=== PATIENT | male | born 1950 ===

== ENCOUNTER 2017-08-02 10:57 | Inpatient (IN) | payer MEDICARE, SELFPAY ==
[2017-08-02] MEDS ORDERED: Succinylcholine Chloride 20 MG/ML 10 ml SYRINGE FS ONE (10:59)
[2017-08-02] MEDS ORDERED: Diltiazem 125 MG/25 ML ONE (11:11)
[2017-08-02 11:17] LABS: Base Excess-Venous -9.8 mmol/L (0 (+/- 2.5)); CO2 Tension (PvCO2) 30.3 mmHg (41.0-51.0); Calcium, Ionized 1.06 mmol/L (1.12-1.32); Hemoglobin - Calc 17.1 g/dL (12.0-18.0); Lactate 4.36 mmol/L (0.50-2.20); Potassium 4.1 mmol/L (3.4-4.7); pH (Venous) 7.303 (7.35-7.45); vO2 Saturation-calc 23.3 % (94-98)
[2017-08-02 11:26] LABS: Hemoglobin 15.8 g/dL (14.0-18.0); Mean Corpuscular Hemoglobin 32.3 pg (27.0-31.0); Mean Corpuscular Volume 94.9 fl (80.0-94.0); Mean Platelet Volume 7.6 fL (7.4-10.4); Platelet Count 207 thou/uL (130-400); RBC Distribution Width 13.2 % (11.5-14.5)
[2017-08-02 11:28] LABS: CO2 Tension 32.1 mmHg (35.0-45.0); pH, Arterial 7.28 (7.35-7.45)
[2017-08-02] MEDS ORDERED: Acetaminophen 650 MG Suppository ONE (11:28)
[2017-08-02] MEDS ORDERED: Acetaminophen 325 MG Suppository ONE (11:28)
[2017-08-02 11:29] LABS: Actual Bicarbonate (HCO3a) 14.6 mEq/L (22-26); Base Excess (BEa) -10.9 mEq/L (0 (+/-) 2.5); Calcium, Ionized 1.2 mmol/L (1.12-1.30); O2 Tension (PaO2) 89.4 mmHg (80.0-100.0)
[2017-08-02 11:30] LABS: ALV-art Gradient 369.575 (0-20); Analyzer IN Cardio ER; Puncture Site RBA
[2017-08-02 11:33] LABS: Bilirubin Large (Negative); Blood, Urine Trace (Negative); Clarity TURBID (Clear); Glucose, Urine (Dipstick) Negative (Negative); Leukocyte Small (Negative); Nitrite Positive (Negative); Protein, Urine (Dipstick) 30 mg/dL (Neg-Trace); Specific Gravity, Urine 1.026 (1.002-1.036)
[2017-08-02] MEDS ORDERED: Midazolam HCl 5 mg/ml Vial ONE (11:34)
[2017-08-02 11:45] LABS: Bacteria/HPF 2+ HPF (None Seen); Hyaline Casts/LPF 0-3 HYALINE CAST LPF (0-3 Hyaline); Manual Microscopic Reviewed? No Path Casts Seen; RBC/HPF 0-3 HPF (0-3)
[2017-08-02 11:49] LABS: Band 29 % (5-11); Lymphocytes 7 % (21-51); MDiff Complete? YES; Monocytes 1 % (0-10); Neutrophil 62 % (42-75); PLT Morphology Comment Appears Adequate; RBC Morphology Normal; Reactive Lymphocytes 1 % (0-10)
[2017-08-02 11:50] LABS: ALT (SGPT) 31 U/L (8-55); AST (SGOT) 64 U/L (5-34); Alkaline Phosphatase 58 U/L (40-150); Anion Gap 19 mmol/L (10-20); BUN (Urea Nitrogen) 23 mg/dL (8.4-25.7); Calc. Creatinine Clearance 0 mL/min (70-130); Calcium 9.7 mg/dL (7.8-10.44); Carbon Dioxide 14 mmol/L (23-31); Chloride 99 mmol/L (98-107); Estimated GFR-MDRD 48; Globulin 4.2 g/dL (2.4-3.5); Glucose 118 mg/dL (83-110); Lipase 4 U/L (8-78); Protein, Total 8.2 g/dL (5.8-8.1); Sodium 128 mmol/L (136-145)
[2017-08-02] MEDS ORDERED: cefTRIAXone\\ROCEPHIN 2 GM VIAL ONE (11:50)
[2017-08-02] MEDS ORDERED: Azithromycin 500 MG VIAL ONE (11:50)
[2017-08-02 12:14] LABS: O2 Tension (PaO2) 102.7 mmHg (80.0-100.0); pH, Arterial 7.33 (7.35-7.45)
[2017-08-02 12:15] LABS: Actual Bicarbonate (HCO3a) 14.3 mEq/L (22-26); Analyzer IN Cardio ER; Base Excess (BEa) -10.1 mEq/L (0 (+/-) 2.5); Calcium, Ionized 1.1 mmol/L (1.12-1.30); Hemoglobin (Hb) 13.3 g/dL (14.0-18.0)
[2017-08-02 12:16] LABS: Puncture Site RBA
[2017-08-02] MEDS ORDERED: Bisacodyl 10 MG SUPP PR PRN (12:37)
[2017-08-02] MEDS ORDERED: Milk Of Magnesia 30 ML UDCUP PER TUBE PRN (12:37)
[2017-08-02] MEDS ORDERED: Norepinephrine 8 MG/0.9% NS 250 ML IVPB PRN (12:37)
[2017-08-02] MEDS ORDERED: CCU Electrolyte Replacement 1 EACH IVPB ONE (12:37)
[2017-08-02] MEDS ORDERED: VANCOMYCIN IVPB PRN (12:37)
[2017-08-02] MEDS ORDERED: Mag-Al 1200 mg/1200 mg/30 ML UDCUP PER TUBE PRN (12:37)
[2017-08-02] MEDS ORDERED: Ondansetron HCl/PF 4 MG/2 ML Vial IVP PRN (12:37)
[2017-08-02] MEDS ORDERED: Potassium Phosphate 12 MMOL in Sodium Chloride 0.9% 250 ML 250 ML IV PRN (12:53)
[2017-08-02] MEDS ORDERED: Potassium Chloride 40 MEQ in Premix Bag 1 BAG IVPB PRN (12:53)
[2017-08-02] MEDS ORDERED: Magnesium Oxide 400 MG TAB PO PRN ×2 (12:53)
[2017-08-02] MEDS ORDERED: Potassium Chloride 20 MEQ TAB PO PRN (12:53)
[2017-08-02] MEDS ORDERED: Magnesium 2 GM/NS 0.9% 100 ML 2 GM in Premix Bag 1 BAG IVPB PRN (12:53)
[2017-08-02] MEDS ORDERED: Potassium Phosphate 9 MMOL in Sodium Chloride 0.9% 100 ML IVPB PRN (12:53)
[2017-08-02] MEDS ORDERED: Potassium Phosphate 15 MMOL in Sodium Chloride 0.9% 250 ML 250 ML IV PRN (12:53)
[2017-08-02] MEDS ORDERED: CCU ELECTROLYTE REPLACEMENT PROTOCOL FS PRN (12:53)
--- NOTE | 2017-08-02 13:14 | RAD ---
CHEST 1 VIEW: HISTORY: SVT. COMPARISON: None. FINDINGS: Endotracheal tube just beyond the level of the clavicles. Nasogastric tube extends beyond the diaphr agm. Atherosclerosis of the aorta. Lungs are hyperinflated. Right lower lobe infiltrate is suspect ed. Old right rib fractures. No pneumothorax. IMPRESSION: Right lower lobe infiltrate. POS: [facility]
[2017-08-02] MEDS: Multivitamins, Adult 10 ML, Folic Acid 1 MG, Thiamine HCl 100 MG in Dextrose 5 %-0.45 %... IV SCH (13:30)
[2017-08-02] MEDS ORDERED: Lorazepam 2 MG/ML VIAL ONE (13:33)
--- NOTE | 2017-08-02 13:36 | HP ---
PRIMARY CARE PHYSICIAN: Dr. Yandel Baker. REASON FOR ADMISSION: Acute respiratory failure, sepsis secondary to pneumonia, SVT. HISTORY OF PRESENT ILLNESS: The patient is stated as 89 years of age, but that is wrong. Most like ly, this patient's age in the 70s-80s. The patient was intubated when I saw this patient. Family member arrived little bit later, after arrival and after intubation and they provided some his tory. The patient's brother and his sister as well as nephew is present. They are providing history. They report that the patient lives by himself. He has poor living situation though he lives in his house and he has surrounding cats. He drinks alcohol heavily and he smokes heavily. He does not like to go to doctors. One time when he went to see Dr. 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 Si nce then, he never saw any primary care physician and he was only taking aspirin and he was not takin g any other medication. The patient does not follow instructions given by other family members. He is not and he does not have any kids. Last night, the patient had episode of fall and the patient's sister son-in-law went to his house and helped him to sit on the couch. At that time, they noticed that the patient was not able to stand b y himself and he was not able to walk to the couch from floor. They report that he may be sick for t he last couple of days. Today, he was complaining of shortness of breath and that is why paramedics was called. When paramedics saw him, at that time, he was found with SVT. He reported to paramedics that he is only taking aspirin, and he does not have any other medical history. The patient had SVT and paramedics cardioverted with 200 joules. IV access was established. When he came to emergency room, he was rapidly decompensated and he required intubation. Initially, the patient was hypertensive, but after intubation, the patient's blood pressure was 102/7 6. Initially, he was in SVT, but after that he was in sinus tachycardia after cardioversion. He was having temperature 104.4 and that is why cooling blanket was applied. Routine blood tests showed hy ponatremia, leukocytosis with bandemia, lactic acidosis, hyponatremia, acute kidney failure, elevated BNP and urinalysis was also suggestive of UTI. Unfortunately, the patient is intubated and he cannot provide any more history and family member only have information this much and they did not add any more information to him. The patient ambulates with a cane. REVIEW OF SYSTEMS: All review of systems tried to review with the patient, but unfortunately unable to review because patient is intubated and sedated. 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 He has tobacco abuse disorder as well as alcohol abuse disorder. PAST PSYCHIATRIC HISTORY: Noncompliance with treatment. He does not like to go to doctors. He does not able to take care of himself and he smokes and he abuses alcohol heavily. PAST SURGICAL HISTORY: Unable to review at this point because the patient is intubated, sedated and family member does not have any clue about his previous surgical history. ALLERGIES: No known drug allergy. CURRENT HOME MEDICATIONS: The patient is only taking aspirin 81 mg daily. FAMILY HISTORY: Positive for congestive heart failure. No family history of cancer or stroke. EMERGENCY ROOM COURSE: The patient has received Rocephin, azithromycin, midazolam 5 mg, Tylenol 975 mg rectally, IV fluid, succinylcholine, Cardizem 10 mg IV push, etomidate 40 mg x2. SOCIAL HISTORY: The patient is single. He never . He lives by himself in his house. He smo kes heavily. He drinks alcohol heavily. He does not have any other illicit drug abuse history. He ambulates with a cane. PHYSICAL EXAMINATION: VITAL SIGNS: Currently, the patient is intubated and sedated. Blood pressure 102/76; pulse 118 and tachycardia; respiratory rate 14, on ventilator; temperature 104.4; saturation 99% on ventilator; yandy ght 67.7 kilograms. GENERAL: Patient is intubated, sedated, younger than his stated age. HEAD: Normocephalic, atraumatic. EYES: Pupils round, reactive to light. Extraocular muscle intact. No nystagmus. ENT: Endotracheal tube in place. Dry appearing mucous membranes. No oral lesion. NECK: Supple, no JVD, no thyromegaly, no carotid bruit. LUNGS: Few end expiratory wheezing heard. Rales present at the right lower lobe. CARDIAC: S1, S2 regular, tachycardia. No murmur elicited, no gallop, no rub. ABDOMEN: Soft, bowel sounds present, nontender, nondistended. No organomegaly, no mass, no suprapub ic discomfort though unable to determine because intubated and sedated. BACK: Unremarkable. EXTREMITIES: Upper extremity: Passive movement of all joints are normal. Lower extremity: Patient does have bruise from fall on the right knee. NEUROLOGIC: Unable to assess at this point because the patient is intubated and sedated. SKIN: No skin rash other than bruise from fall on the right knee. PSYCHIATRIC: Unable to assess at this point. SIGNIFICANT LABORATORY DATA: Previous EKG was showing SVT. Currently, EKG showing sinus tachycardia , nonspecific ST-T changes. Chest x-ray showing right lower lobe infiltration, COPD type of changes. CBC: WBC 18.0, hemoglobin 15.8, platelet 207 with bandemia. ABG: pH 7.33, CO2 28.0, O2 102.7, sa turation 98%, bicarbonate 14.3 on ventilator. BMP: Sodium 128, potassium 4.0, chloride 99, carbon d ioxide 14, anion gap 19, BUN 23, creatinine 1.36, glucose 118, calcium 9.7. Bilirubin 2.0, AST 64, A LT 31, alkaline phosphatase 58, albumin 4.0, lipase 4. TSH 1.81. BNP 940.7. Urinalysis suggestive of urinary tract infection. ASSESSMENT AND PLAN: 1. Acute respiratory failure with hypoxia. The patient does have right lower lobe infiltration. He is a heavy smoker. He might have underlying chronic obstructive pulmonary disease exacerbation as w ell. He has currently sepsis. He also has elevated BNP. He was also having SVT initially. At this point, the patient is intubated in the emergency room. Dr. May is already notified. [facility] ent will defer to him. 2. Community-acquired right lower lobe pneumonia, rule out aspiration pneumonia. At this point, the patient will be given broad-spectrum antibiotic therapy with vancomycin and Zosyn. DuoNeb therapy w ill be given. 3. Severe sepsis, required intubation for hypoxic respiratory failure with acute organ dysfunction. The patient has respiratory failure, elevated BNP and lactic acidosis. The patient is kept on broad -spectrum antibiotic therapy and will continue with IV fluid and will follow up on culture result. 5. Urinary tract infection. The patient is already on vancomycin and Zosyn. We will follow up on u rine culture result. 6. Lactic acidosis due to sepsis. We will repeat lactic acid level tomorrow. 7. Elevated BNP, most likely related with acute supraventricular tachycardia, but underlying congest boo heart failure secondary to alcoholic cardiomyopathy cannot be entirely excluded. We will obtain echocardiography to assess ejection fraction and other structural abnormality. 8. Acute supraventricular tachycardia converted after cardioversion. We will consult Cardiology. W e will do serial cardiac enzymes x3. We will obtain echocardiography. TSH is normal. Probably, the patient's supraventricular tachycardia episode may be triggered by underlying high grade fever and s epsis. Further investigation will defer to Cardiology. 9. Hyponatremia, possibly from beer potomania or underlying dehydration. At this point, the patient will be given IV fluid and will repeat BMP tomorrow. 10. Alcoholism. We will continue with banana bag. We will watch for any alcohol withdrawal symptom s. 11. Tobacco abuse disorder. When the patient will be extubated, at that time we will provide counse ling to avoid smoking as well as avoid alcohol abuse and will offer nicotine patch if needed. 12. Respiratory alkalosis. The patient has compensation secondary to tachypnea. 13. Protein-calorie malnutrition. The patient will be given nutritional support. 14. Deep venous thrombosis prophylaxis. Lovenox 30 mg subcutaneously daily. 15. Gastrointestinal prophylaxis, Protonix 40 mg IV daily. 16. Code status: The patient is FULL CODE. The patient does not have any surrogate decision maker. Disposition plan based on clinical course. We are expecting patient's stay in hospital more than 2 m idnights. We will also use Levophed drip if needed in case if blood pressure drops. Total time spent providing critical care to this patient was 35 minutes in the Emergency Room. Condition updated to family members at bedside in the emergency room.
--- NOTE | 2017-08-02 13:57 | CON ---
DATE OF CONSULTATION: 08/02/2017 Mr. Reddy is reportedly 67 years old. He is unable to give a history since he is intubated. Reviewing the admitting history is obtained by the Hospitalist , apparently he drinks heavily, smokes heavily, and does not care for himself. His appearance would support that. He does not receive any routine health care. Apparently he has been falling. He has multiple abrasions and lacerations and scabs on all 4 extremities. Apparently last night he was unable to stand. He was complaining of shortness of breath. Paramedics were called. He received adenosine and cardioversion for what they felt was SVT. Subsequently he was admitted to the ICU after being intubated by the emergency physician. Chest radiograph shows a faint right lower lobe infiltrate, proper placement of the endotracheal tube. I have reviewed this film. PAST MEDICAL HISTORY: Otherwise unknown. FAMILY HISTORY: Could not obtain. SOCIAL HISTORY: As mentioned, he reportedly smokes and drinks a significant amount. PHYSICAL EXAMINATION: GENERAL: Patient is intubated and cannot complete a good history VITAL SIGNS: He is febrile to 104 in the ER, he is 101.7 in the ICU, heart rate 113, he is in sinus rhythm, respiratory rates in the 30s. Blood pressure 109/68. LUNGS: Remarkable for rhonchi bilaterally. HEART: Regular rhythm. S1 and S2 are distant. ABDOMEN: Soft and nontender. EXTREMITIES: No clubbing, cyanosis, or edema. He does spontaneously move all of his extremities. IMPRESSION: 1. Right lower lobe pneumonia. 2. Severe intravascular volume depletion. 3. Possible coexistent sepsis, but I suspect because of his alcohol usage, he is just more likely severely dehydrated, will be aggressively volume resuscitated, receive antibiotics, mechanical ventilation as well as benzodiazepines for sedation. This is a 50 minute consult with greater that 50% of the time spent on the unit with coordination of care. OPAL
[2017-08-02] MEDS ORDERED: Vancomycin HCl 1 GM in Premix Bag 1 BAG IVPB SCH (14:00)
[2017-08-02] MEDS ORDERED: Sodium Chloride 0.9% 1,000 ML IV SCH ×2 (14:45→17:45)
[2017-08-02] MEDS: Acetaminophen 650 MG/20.3 ML UDCUP PER TUBE PRN (15:39)
[2017-08-02] MEDS: Sodium Chloride 0.9% 1,000 ML IV SCH ×2 (15:39→19:50)
[2017-08-02 15:54] LABS: Lactic Acid 2.7 mmol/L (0.5-2.2)
[2017-08-02] MEDS ORDERED: Midazolam HCl 2 mg/2 ml Vial ONE (15:57)
[2017-08-02 16:08] LABS: CKMB 12.4 ng/mL (0-6.6); Troponin I 0.986 ng/mL (< 0.028)
[2017-08-02] MEDS ORDERED: Digoxin 0.5 MG/2 ML AMP ONE (16:32)
[2017-08-02] MEDS ORDERED: Digoxin 0.5 MG/2 ML AMP SLOW IVP SCH (16:45)
[2017-08-02] MEDS ORDERED: Vasopressin 40 UNIT, Admixture Fee 1 EACH in Sodium Chloride 0.9% 100 ML IV SCH (18:30)
[2017-08-02] MEDS ORDERED: Albumin 25% 25 GM/100 ML BOT IVPB SCH (18:30)
[2017-08-02 18:59] LABS: CKMB 11.6 ng/mL (0-6.6); Critical Call CKMBM RESULT DECREASING; Critical Call Chem Troponin I RESULT DECREASING; Troponin I 0.665 ng/mL (< 0.028)
[2017-08-02] MEDS: Piperacillin/Tazobactam 3.375 GM in Sodium Chloride 0.9% 100 ML IVPB SCH (19:30)
--- NOTE | 2017-08-02 23:11 | CON ---
DATE OF CONSULTATION: 08/02/2017 REASON FOR CONSULTATION: Tachycardia, respiratory failure. HISTORY OF PRESENT ILLNESS: Mr. Khoa Reddy is an elderly gentleman, intubated on the ventilator wi th respiratory failure and tachycardia. The patient is unable to give history as he is intubated. According to the notes in the chart, the p atient has heavy alcohol intake as well as heavy tobacco use, has frequent falling. He was found to have multiple abrasions and lacerations in all 4 extremities. He is complaining of shortness of floyd th. Someone called the paramedics. He received adenosine and cardioversion, but had recurrent tachy cardia. The patient has been intubated on the ventilator. PAST MEDICAL HISTORY: Otherwise unknown. SOCIAL HISTORY: Positive for smoking and drinking. PHYSICAL EXAMINATION: GENERAL: It is chronically ill-appearing elderly gentleman, not responding now. VITAL SIGNS: Blood pressure was 90/60; pulse 120-140, looks like an atrial tachycardia. SKIN: There is a grayish discoloration, looks chronically ill, intubated and ventilated. NECK: Neck veins are slightly distended. LUNGS: Distant, but I do not hear wheezing or rales. CARDIOVASCULAR: Tachycardic, irregularly irregular. ABDOMEN: Soft, nontender. EXTREMITIES: Cool, but not cold. Multiple abrasions throughout all the extremities. LABORATORY AND X-RAY FINDINGS: Hemoglobin 15.8. Troponin level 0.986. Lactic acid 2.7. BNP 940.7. The patient is currently on pressors. EKG reveals what appears to be an atrial tachycardia. ASSESSMENT: 1. Atrial tachycardia. 2. Likely chronic obstructive pulmonary disease. 3. Right lower lobe infiltrate. PLAN: 1. He is on antibiotics. 2. Agree with digoxin. 3. Probably cannot use Cardizem at this point due to the hypotension. 4. I will be glad to follow with you. Prognosis appears guarded to poor.
[2017-08-02] MEDS: Albumin 25% 25 GM/100 ML BOT IVPB SCH (23:56)
[2017-08-03] MEDS: Sodium Chloride 0.9% 1,000 ML IV SCH ×5 (00:03→21:15)
[2017-08-03 04:59] LABS: Lactic Acid 2.9 mmol/L (0.5-2.2)
[2017-08-03] MEDS: Albumin 25% 25 GM/100 ML BOT IVPB SCH ×3 (05:10→18:06)
[2017-08-03 05:40] LABS: Albumin 2.8 g/dL (3.4-4.8)
[2017-08-03 05:41] LABS: Chloride 111 mmol/L (98-107); Potassium 3.5 mmol/L (3.5-5.1); Sodium 132 mmol/L (136-145)
[2017-08-03 05:42] LABS: Glucose 187 mg/dL (83-110)
[2017-08-03 05:44] LABS: Anion Gap 11 mmol/L (10-20); Bilirubin, Total 1.9 mg/dL (0.2-1.2); Carbon Dioxide 14 mmol/L (23-31)
[2017-08-03 05:45] LABS: Alkaline Phosphatase 21 U/L (40-150)
[2017-08-03 05:46] LABS: Calc. Creatinine Clearance 57 mL/min (70-130); Calcium 7.1 mg/dL (7.8-10.44); Estimated GFR-MDRD Greater than 90; Protein, Total 4.8 g/dL (5.8-8.1)
[2017-08-03 05:47] LABS: BUN (Urea Nitrogen) 13 mg/dL (8.4-25.7)
[2017-08-03 05:48] LABS: ALT (SGPT) 17 U/L (8-55); AST (SGOT) 46 U/L (5-34)
[2017-08-03] MEDS: Piperacillin/Tazobactam 3.375 GM in Sodium Chloride 0.9% 100 ML IVPB SCH ×4 (06:02→18:40)
[2017-08-03 06:38] LABS: Anisocytosis SLIGHT = 6-15 cells (100X) (0-5/hpf); Band 59 % (5-11); Crenated RBC SLIGHT = 1-5 cells (100X) (None Seen); Elliptocytes SLIGHT = 2-5 cells (100X) (0-1/hpf); Hemoglobin 9.6 g/dL (14.0-18.0); Lymphocytes 8 % (21-51); MDiff Complete? YES; Mean Corpuscular HGB CONC 34.3 g/dL (32.0-36.0); Mean Corpuscular Hemoglobin 32.3 pg (27.0-31.0); Mean Corpuscular Volume 94.4 fl (80.0-94.0); Metamyelocyte 1 % (0-0); Monocytes 1 % (0-10); Neutrophil 31 % (42-75); PLT Morphology Comment Appears Decreased; Platelet Count 94 thou/uL (130-400); RBC Distribution Width 13.3 % (11.5-14.5); Red Blood Cell (RBC) Count 2.96 mill/uL (4.70-6.10); White Blood Cell (WBC) Count 3.9 thou/uL (4.8-10.8)
[2017-08-03] MEDS: Potassium Chloride 40 MEQ in Sodium Chloride 0.9% 250 ML 250 ML IVPB PRN (06:52)
--- NOTE | 2017-08-03 07:42 | RAD ---
SEMIUPRIGHT PORTABLE CHEST 1 VIEW: Date: 08/03/17 HISTORY: [id number] male with respiratory insufficiency. COMPARISON: 08/02/17. FINDINGS: NG tube and endotracheal tubes in position. Monitor leads overlie the chest. Worsening bilateral vasc ular congestion, and interstitial and alveolar opacities throughout both lungs, including the perihil ar regions and lower lung zones, somewhat more marked in the right base. IMPRESSION: Considerably worsening abnormal alveolar and interstitial opacities, somewhat greater in the right ch est. Continue short-term follow-up. POS: OFF
[2017-08-03 08:08] LABS: pH, Arterial 7.35 (7.35-7.45)
[2017-08-03 08:09] LABS: Actual Bicarbonate (HCO3a) 12.7 mEq/L (22-26); Base Excess (BEa) -11.4 mEq/L (0 (+/-) 2.5); CO2 Tension 23.3 mmHg (35.0-45.0); Calcium, Ionized 1.1 mmol/L (1.12-1.30); Hematocrit-ABG 27.9 % (42.0-52.0); Hemoglobin (Hb) 9.1 g/dL (14.0-18.0); O2 Tension (PaO2) 82.1 mmHg (80.0-100.0); Puncture Site L.R.
[2017-08-03 08:10] LABS: ALV-art Gradient 173.975 (0-20)
[2017-08-03] MEDS ORDERED: Vecuronium 10 MG VIAL IV PRN (08:27)
[2017-08-03] MEDS: Enoxaparin Sodium 30 MG/0.3 ML SYRINGE SC SCH (09:46)
--- NOTE | 2017-08-03 10:00 | PDOC.PN ---
- Subjective Encounter Start Date: 08/03/17 Encounter Start Time: 09:30 -: old records requested/rev Patient seen and examined for pneumonia, currently intubated, on vasopressin, No overnight events - Objective MAR Reviewed: Yes Vital Signs & Weight: Vital Signs (12 hours) Pulse Resp BP Pulse Ox 08/03/17 07:45 94 25 H 100 08/03/17 07:42 94 113/70 08/03/17 06:00 27 H 08/03/17 04:00 28 H 08/03/17 02:00 32 H 08/03/17 00:00 32 H 08/02/17 23:27 96 28 H 100 08/02/17 22:00 30 H Weight Weight 163 lb 12.855 oz Most Recent Monitor Data Heart Rate from ECG 108 NIBP 130/74 NIBP BP-Mean 99 Respiration from ECG 27 SpO2 99 I&O: 08/02/17 08/03/17 08/04/17 06:59 06:59 06:59 Intake Total 7995.3 Output Total 1994 Balance 6000.3 Result Diagrams: 08/03/17 05:05 08/03/17 05:05 Radiology Reviewed by me: Yes (chest xray) EKG Reviewed by me: Yes (nsr) Phys Exam - Physical Examination Constitutional: NAD intubated HEENT: PERRLA, sclera anicteric Neck: no JVD, supple Respiratory: no wheezing, no rales, no rhonchi Cardiovascular: RRR, no significant murmur, no rub Gastrointestinal: soft, no distention, positive bowel sounds Musculoskeletal: no edema, pulses present unable to assess due to intubated Lymphatic: no nodes Deviation from normal: unable to assess Skin: normal turgor Dx/Plan (1) Acute respiratory failure with hypoxia Code(s): J96.01 - ACUTE RESPIRATORY FAILURE WITH HYPOXIA Status: Acute (2) Community acquired bacterial pneumonia Code(s): J15.9 - UNSPECIFIED BACTERIAL PNEUMONIA Status: Acute (3) Demand ischemia of myocardium Code(s): I24.8 - OTHER FORMS OF ACUTE ISCHEMIC HEART DISEASE Status: Acute (4) Elevated brain natriuretic peptide (BNP) level Code(s): R79.89 - OTHER SPECIFIED ABNORMAL FINDINGS OF BLOOD CHEMISTRY Status : Acute (5) Lactic acidosis Code(s): E87.2 - ACIDOSIS Status: Acute (6) Pancytopenia Code(s): D61.818 - OTHER PANCYTOPENIA Status: Acute (7) SVT (supraventricular tachycardia) Code(s): I47.1 - SUPRAVENTRICULAR TACHYCARDIA Status: Acute (8) Sepsis with acute organ dysfunction Code(s): A41.9 - SEPSIS, UNSPECIFIED ORGANISM; R65.20 - SEVERE SEPSIS WITHOUT SEPTIC SHOCK Status: Acute (9) Septic shock Code(s): A41.9 - SEPSIS, UNSPECIFIED ORGANISM; R65.21 - SEVERE SEPSIS WITH SEPTIC SHOCK Status: Acute (10) UTI (urinary tract infection) Status: Acute (11) Alcohol abuse Code(s): F10.10 - ALCOHOL ABUSE, UNCOMPLICATED Status: Chronic (12) Protein-calorie malnutrition, moderate Code(s): E44.0 - MODERATE PROTEIN-CALORIE MALNUTRITION Status: Chronic (13) Tobacco abuse Code(s): Z72.0 - TOBACCO USE Status: Chronic - Plan cont current plan of care, continue antibiotics, respiratory therapy * continue vancomycin and zosyn * echo done and result pending * cardiology following * pulmonary managing vent * monitor labs * follow culture * medication reviewed as below * symptomatic treatment. * continue vasopressure support Review of Systems - Review of Systems Other: unable to review due to intubated status - Medications/Allergies Allergies/Adverse Reactions: Allergies Allergy/AdvReac Type Severity Reaction Status Date / Time No Known Allergies Allergy Unverified 08/02/17 12:53 Medications: Current Medications Acetaminophen (Tylenol Elixir) 650 mg PER TUBE Q4H PRN PRN Reason: Headache/Fever or MILD Pain Last Admin: 08/02/17 15:39 Dose: 650 mg Al Hydroxide/Mg Hydroxide (Maalox) 30 ml PER TUBE Q6H PRN PRN Reason: Heartburn or Indigestion Albumin Human (Albumin 25%) 25 gm IVPB Q6HR [facility] Stop: 08/04/17 23:59 Last Admin: 08/03/17 05:10 Dose: 25 gm Albuterol/Ipratropium (Duoneb) 3 ml NEB [id number] NAVNE[facility] Last Admin: 08/03/17 07:45 Dose: 3 ml Bisacodyl (Dulcolax) 10 mg WV Q24H PRN PRN Reason: Constipation Enoxaparin Sodium (Lovenox) 30 mg SC 0900 [facility] Last Admin: 08/03/17 09:46 Dose: 30 mg Multivitamins 10 ml/ Folic Acid 1 mg/ Thiamine HCl 100 mg / Dextrose/Sodium Chloride 1,011.2 mls @ 100 mls/hr IV Q24HR [facility] Last Admin: 08/02/17 13:30 Dose: 1,011.2 mls Piperacillin Sod/Tazobactam (Sod 3.375 gm/ Sodium Chloride) 100 mls @ 200 mls/ hr IVPB 0100,0700,1300,1900 [facility] Last Admin: 08/03/17 06:02 Dose: 100 mls Potassium Chloride 40 meq/ (Sodium Chloride) 270 mls @ 135 mls/hr IVPB ASDIR PRN PRN Reason: FOR SERUM K+ 2.5 - 3.5 Last Admin: 08/03/17 06:52 Dose: 270 mls Potassium Chloride 40 meq/ (Device) 100 mls @ 50 mls/hr IVPB ASDIR PRN PRN Reason: FOR SERUM K+ 2.5 - 3.5 Magnesium Sulfate 1 gm/ Sodium (Chloride) 102 mls @ 102 mls/hr IV PRN PRN PRN Reason: MAG LEVEL 1.4 - 2.0 Magnesium Sulfate 2 gm/ Device 100 mls @ 100 mls/hr IVPB ASDIR PRN PRN Reason: MAGNESIUM < 1.4 Potassium Phosphate 9 mmol/ (Sodium Chloride) 103 mls @ 25.75 mls/hr IVPB ASDIR PRN PRN Reason: Phosphate 1.0-1.8 Potassium Phosphate 12 mmol/ (Sodium Chloride) 254 mls @ 63.5 mls/hr IV ASDIR PRN PRN Reason: Serum phosphate 0.5-0.9 Potassium Phosphate 15 mmol/ (Sodium Chloride) 255 mls @ 63.75 mls/hr IV ASDIR PRN PRN Reason: Serum Phos < 0.5 Sodium Chloride (Normal Saline 0.9%) 1,000 mls @ 200 mls/hr IV .Q5H [facility] Last Admin: 08/03/17 09:40 Dose: 1,000 mls Midazolam HCl (Versed) 100 mls @ 0 mls/hr IVPB INF NAVNEET; Titrate PRN Reason: Protocol Last Admin: 08/02/17 16:00 Dose: 100 mls Vasopressin 40 unit/Miscellaneous Medication 1 each/ Sodium Chloride 102 mls @ 6 mls/hr IV INF NAVNEET PRN Reason: Protocol Last Admin: 08/02/17 18:30 Dose: 102 mls Vancomycin HCl 1.25 gm/ Sodium (Chloride) 250 mls @ 166.667 mls/hr IVPB 1000, 2200 [facility] Magnesium Hydroxide (Milk Of Magnesium) 30 ml PER TUBE DAILYPRN PRN PRN Reason: Constipation Magnesium Oxide (Magnesium Oxide) 400 mg PO BIDPRN PRN PRN Reason: FOR SERUM MAG 1.4 - 2.0 Magnesium Oxide (Magnesium Oxide) 800 mg PO PRN PRN PRN Reason: FOR SERUM MAG < 1.4 Methylprednisolone Sodium Succinate (Solu-Medrol) 20 mg IVP Q6HR [facility] Miscellaneous Medication (Pharmacy To Dose) 1 each IVPB DAILYPRN PRN PRN Reason: LABS Miscellaneous Medication (Phos-Nak) 1 pkt PO TIDPRN PRN PRN Reason: FOR PHOS LEVEL 1.0 - 1.8 Miscellaneous Medication (Phos-Nak) 2 pkt PO TIDPRN PRN PRN Reason: FOR PHOS LEVEL 0.5 - 1.0 Ccu Electrolyte (Replacement Protocol) 0 each FS PRN PRN PRN Reason: FOR ELECTROLYTE REPLACEMENT Ondansetron HCl (Zofran) 4 mg IVP Q6H PRN PRN Reason: Nausea/Vomiting Pantoprazole Sodium (Protonix) 40 mg IVP 2100 [facility] Potassium Chloride (K-Dur) 40 meq PO ASDIR PRN PRN Reason: FOR SERUM K+ 2.5 - 3.5 Potassium Chloride (Klor-Con) 40 meq PER TUBE ASDIR PRN PRN Reason: FOR SERUM K+ 2.5-3.5 Vecuronium [place] (Norcuron) 10 mg IV Q2H PRN PRN Reason: Agitation
--- NOTE | 2017-08-03 10:09 | PRG ---
DATE OF SERVICE: 08/03/2017 SUBJECTIVE: Mr. Reddy is back in sinus rhythm. He is still on the ventilator. REVIEW OF SYSTEMS: Not obtainable. PHYSICAL EXAMINATION: VITAL SIGNS: Blood pressure is better 130/70, pulse 108, sinus tachycardia. LUNGS: Distant, no wheezing. CARDIAC: Distant, no murmur, rub or gallop. ABDOMEN: Soft, nontender. EXTREMITIES: Not warm. ASSESSMENT: 1. Respiratory failure. 2. Atrial arrhythmias, improved. 3. Increased troponin, probably demand ischemia. 4. Lactic acidosis, improved. 5. Hyponatremia. 6. Hypokalemia. PLAN: Continue supportive care. No other changes at this time.
[2017-08-03] MEDS: Vancomycin HCl 1.25 GM in Sodium Chloride 0.9% 250 ML 250 ML IVPB SCH ×2 (10:29→21:14)
[2017-08-03] MEDS ORDERED: Diltiazem HCl 125 MG, Admixture Fee 1 EACH in Sodium Chloride 0.9% 100 ML IVPB SCH (12:00)
[2017-08-03] MEDS: Multivitamins, Adult 10 ML, Folic Acid 1 MG, Thiamine HCl 100 MG in Dextrose 5 %-0.45 %... IV SCH ×2 (12:45→19:06)
--- NOTE | 2017-08-03 18:52 | PRG ---
DATE OF SERVICE: 08/03/2017 SUBJECTIVE: Mr. Reddy remains mechanically ventilated. OBJECTIVE: VITAL SIGNS: His heart rate had been up to highest 152 earlier today, but is down to 110 now. Blood pressure 104/65, respiratory rate in the 20s. Oximetry is 95% on ventilation. LUNGS: Remarkable for coarse breath sounds bilaterally. HEART: Regular rhythm. ABDOMEN: Soft. EXTREMITIES: Without asymmetry or edema. Moves all well. NEUROLOGIC: Nonfocal. LABORATORY DATA: White count 3.9 today, hemoglobin 9.6, platelets 94,000. He has 59% bands on his p eripheral smear. One blood culture positive for Staph aureus. Second blood cultures positive for Staph aureus as well . Most likely (gram positives in clusters). IMPRESSION: Staph aureus bacteremia with pneumonia. His radiograph is progressed on reviewing his c hest x-ray. He will remain mechanically ventilated for many days. His antimicrobial therapy should be appropriate at this point. Critical care time was 30 minutes.
[2017-08-03] MEDS: Pantoprazole 40 MG VIAL IVP SCH (21:14)
[2017-08-04] MEDS: Albumin 25% 25 GM/100 ML BOT IVPB SCH ×4 (00:23→18:30)
[2017-08-04] MEDS: Piperacillin/Tazobactam 3.375 GM in Sodium Chloride 0.9% 100 ML IVPB SCH ×4 (00:23→18:30)
[2017-08-04] MEDS: Sodium Chloride 0.9% 1,000 ML IV SCH ×3 (00:24→09:35)
[2017-08-04 04:42] LABS: Band 35 % (5-11); Hemoglobin 8.5 g/dL (14.0-18.0); Lymphocytes 8 % (21-51); MDiff Complete? YES; Mean Corpuscular HGB CONC 35.1 g/dL (32.0-36.0); Mean Corpuscular Hemoglobin 32.9 pg (27.0-31.0); Mean Corpuscular Volume 93.8 fl (80.0-94.0); Mean Platelet Volume 8.1 fL (7.4-10.4); Monocytes 1 % (0-10); Neutrophil 56 % (42-75); PLT Morphology Comment Appears Decreased; Platelet Count 75 thou/uL (130-400); RBC Distribution Width 13.2 % (11.5-14.5); Red Blood Cell (RBC) Count 2.57 mill/uL (4.70-6.10)
[2017-08-04 04:51] LABS: ALT (SGPT) 12 U/L (8-55); AST (SGOT) 24 U/L (5-34); Albumin 3.5 g/dL (3.4-4.8); Alkaline Phosphatase 17 U/L (40-150); Anion Gap 9 mmol/L (10-20); BUN (Urea Nitrogen) 9 mg/dL (8.4-25.7); Bilirubin, Total 1.5 mg/dL (0.2-1.2); Calc. Creatinine Clearance 118 mL/min (70-130); Calcium 8.2 mg/dL (7.8-10.44); Carbon Dioxide 16 mmol/L (23-31); Chloride 112 mmol/L (98-107); Estimated GFR-MDRD Greater than 90; Globulin 1.8 g/dL (2.4-3.5); Glucose 156 mg/dL (80-115); Potassium 2.9 mmol/L (3.5-5.1); Protein, Total 5.3 g/dL (5.8-8.1); Sodium 134 mmol/L (136-145)
[2017-08-04] MEDS: Potassium Chloride 40 MEQ in Sodium Chloride 0.9% 250 ML 250 ML IVPB PRN ×2 (05:45→14:34)
[2017-08-04 07:55] LABS: Actual Bicarbonate (HCO3a) 16.1 mEq/L (22-26); O2 Tension (PaO2) 46.6 mmHg (80.0-100.0); pH, Arterial 7.38 (7.35-7.45)
[2017-08-04 07:56] LABS: Base Excess (BEa) -8.1 mEq/L (0 (+/-) 2.5); Hematocrit-ABG 25.2 % (42.0-52.0); Hemoglobin (Hb) 8.4 g/dL (14.0-18.0)
[2017-08-04 07:58] LABS: Analyzer IN Cardio ER; Calcium, Ionized 1.2 mmol/L (1.12-1.30); Puncture Site L.R.
[2017-08-04] MEDS: Enoxaparin Sodium 30 MG/0.3 ML SYRINGE SC SCH (09:11)
[2017-08-04] MEDS: Vancomycin HCl 1.25 GM in Sodium Chloride 0.9% 250 ML 250 ML IVPB SCH ×2 (09:12→21:48)
[2017-08-04] MEDS: Diltiazem HCl 125 MG, Admixture Fee 1 EACH in Sodium Chloride 0.9% 100 ML IVPB SCH (09:12)
--- NOTE | 2017-08-04 10:17 | RAD ---
CHEST ONE VIEW: HISTORY: Ventilated patient. COMPARISON: Radiograph from the prior day. FINDINGS: The endotracheal tube tip is in good position. The enteric tube tip is below the diaphragm, out of t he field of view. Mild interval worsening of extensive interstitial and alveolar opacities throughou t both lungs. Thickening of the right minor fissure. IMPRESSION: Worsening interstitial and alveolar infiltrates, as well as effusions, concerning for either worsenin g edema versus acute respiratory distress syndrome/viral infectious process. POS: [facility]
--- NOTE | 2017-08-04 11:15 | PDOC.PN ---
- Subjective Encounter Start Date: 08/04/17 Encounter Start Time: 09:40 Patient seen and examined. No overnight events pt is currently intubated - Objective MAR Reviewed: Yes Vital Signs & Weight: Vital Signs (12 hours) Temp Pulse Resp BP Pulse Ox 08/04/17 06:59 98 132/74 08/04/17 06:57 95 30 H 92 L 08/04/17 06:00 27 H 08/04/17 04:00 32 H 08/04/17 02:00 30 H 08/04/17 00:00 98.2 F 30 H 08/03/17 23:33 102 H 29 H 92 L Weight Admit Weight 163 lb Weight 171 lb 15.369 oz Most Recent Monitor Data Heart Rate from ECG 98 NIBP 124/72 NIBP BP-Mean 102 Respiration from ECG 34 SpO2 90 I&O: 08/03/17 08/04/17 08/05/17 06:59 06:59 06:59 Intake Total 7995.3 6420.8 Output Total 1994 2440 Balance 6000.3 3980.8 Result Diagrams: 08/04/17 03:30 08/04/17 03:30 EKG Reviewed by me: Yes (nsr) Phys Exam - Physical Examination Constitutional: NAD HEENT: PERRLA, moist MMs, sclera anicteric Neck: no JVD, supple Respiratory: no wheezing, no rales, no rhonchi Cardiovascular: RRR, no significant murmur, no rub Gastrointestinal: soft, no distention, positive bowel sounds Musculoskeletal: no edema, pulses present unable to assess Deviation from normal: unable to assess Deviation from normal: has bruise maxine over both knee and wound Dx/Plan (1) Acute respiratory failure with hypoxia Code(s): J96.01 - ACUTE RESPIRATORY FAILURE WITH HYPOXIA Status: Acute (2) Community acquired bacterial pneumonia Code(s): J15.9 - UNSPECIFIED BACTERIAL PNEUMONIA Status: Acute (3) Demand ischemia of myocardium Code(s): I24.8 - OTHER FORMS OF ACUTE ISCHEMIC HEART DISEASE Status: Acute (4) Elevated brain natriuretic peptide (BNP) level Code(s): R79.89 - OTHER SPECIFIED ABNORMAL FINDINGS OF BLOOD CHEMISTRY Status : Acute (5) Hyperchloremic acidosis Code(s): E87.2 - ACIDOSIS Status: Acute (6) Hypokalemia Code(s): E87.6 - HYPOKALEMIA Status: Acute (7) Lactic acidosis Code(s): E87.2 - ACIDOSIS Status: Acute (8) Pancytopenia Code(s): D61.818 - OTHER PANCYTOPENIA Status: Acute (9) SVT (supraventricular tachycardia) Code(s): I47.1 - SUPRAVENTRICULAR TACHYCARDIA Status: Acute (10) Sepsis with acute organ dysfunction Code(s): A41.9 - SEPSIS, UNSPECIFIED ORGANISM; R65.20 - SEVERE SEPSIS WITHOUT SEPTIC SHOCK Status: Acute (11) Septic shock Code(s): A41.9 - SEPSIS, UNSPECIFIED ORGANISM; R65.21 - SEVERE SEPSIS WITH SEPTIC SHOCK Status: Acute (12) Staphylococcus aureus bacteremia Code(s): R78.81 - BACTEREMIA Status: Acute (13) UTI (urinary tract infection) Status: Acute (14) Alcohol abuse Code(s): F10.10 - ALCOHOL ABUSE, UNCOMPLICATED Status: Chronic (15) Protein-calorie malnutrition, moderate Code(s): E44.0 - MODERATE PROTEIN-CALORIE MALNUTRITION Status: Chronic (16) Tobacco abuse Code(s): Z72.0 - TOBACCO USE Status: Chronic - Plan cont current plan of care, continue antibiotics, respiratory therapy * cardiology and pulmonary on case * vent as per pulmonary * still critical * continue empiric antibiotics and supportive care * medication reviewed as below * symptomatic treatment * prognosis guarded. Review of Systems - Review of Systems Other: unable to review as pt is intubated - Medications/Allergies Allergies/Adverse Reactions: Allergies Allergy/AdvReac Type Severity Reaction Status Date / Time No Known Allergies Allergy Unverified 08/02/17 12:53 Medications: Current Medications Acetaminophen (Tylenol Elixir) 650 mg PER TUBE Q4H PRN PRN Reason: Headache/Fever or MILD Pain Last Admin: 08/02/17 15:39 Dose: 650 mg Al Hydroxide/Mg Hydroxide (Maalox) 30 ml PER TUBE Q6H PRN PRN Reason: Heartburn or Indigestion Albumin Human (Albumin 25%) 25 gm IVPB Q6HR [facility] Stop: 08/04/17 23:59 Last Admin: 08/04/17 05:09 Dose: 25 gm Albuterol/Ipratropium (Duoneb) 3 ml NEB [id number] [facility] Last Admin: 08/04/17 06:57 Dose: 3 ml Bisacodyl (Dulcolax) 10 mg NE Q24H PRN PRN Reason: Constipation Enoxaparin Sodium (Lovenox) 30 mg SC 0900 [facility] Last Admin: 08/04/17 09:11 Dose: 30 mg Multivitamins 10 ml/ Folic Acid 1 mg/ Thiamine HCl 100 mg / Dextrose/Sodium Chloride 1,011.2 mls @ 100 mls/hr IV Q24HR [facility] Last Admin: 08/03/17 19:06 Dose: 1,011.2 mls Piperacillin Sod/Tazobactam (Sod 3.375 gm/ Sodium Chloride) 100 mls @ 200 mls/ hr IVPB 0100,0700,1300,1900 [facility] Last Admin: 08/04/17 09:11 Dose: 100 mls Potassium Chloride 40 meq/ (Sodium Chloride) 270 mls @ 135 mls/hr IVPB ASDIR PRN PRN Reason: FOR SERUM K+ 2.5 - 3.5 Last Admin: 08/04/17 05:45 Dose: 270 mls Potassium Chloride 40 meq/ (Device) 100 mls @ 50 mls/hr IVPB ASDIR PRN PRN Reason: FOR SERUM K+ 2.5 - 3.5 Magnesium Sulfate 1 gm/ Sodium (Chloride) 102 mls @ 102 mls/hr IV PRN PRN PRN Reason: MAG LEVEL 1.4 - 2.0 Magnesium Sulfate 2 gm/ Device 100 mls @ 100 mls/hr IVPB ASDIR PRN PRN Reason: MAGNESIUM < 1.4 Potassium Phosphate 9 mmol/ (Sodium Chloride) 103 mls @ 25.75 mls/hr IVPB ASDIR PRN PRN Reason: Phosphate 1.0-1.8 Potassium Phosphate 12 mmol/ (Sodium Chloride) 254 mls @ 63.5 mls/hr IV ASDIR PRN PRN Reason: Serum phosphate 0.5-0.9 Potassium Phosphate 15 mmol/ (Sodium Chloride) 255 mls @ 63.75 mls/hr IV ASDIR PRN PRN Reason: Serum Phos < 0.5 Sodium Chloride (Normal Saline 0.9%) 1,000 mls @ 200 mls/hr IV .Q5H [facility] Last Admin: 08/04/17 09:35 Dose: 1,000 mls Midazolam HCl (Versed) 100 mls @ 0 mls/hr IVPB INF [facility]; Titrate PRN Reason: Protocol Last Admin: 08/04/17 10:27 Dose: 100 mls Vasopressin 40 unit/Miscellaneous Medication 1 each/ Sodium Chloride 102 mls @ 6 mls/hr IV INF [facility] PRN Reason: Protocol Last Admin: 08/02/17 18:30 Dose: 102 mls Vancomycin HCl 1.25 gm/ Sodium (Chloride) 250 mls @ 166.667 mls/hr IVPB 1000, 2200 [facility] Last Admin: 08/04/17 09:12 Dose: 250 mls Diltiazem HCl 125 mg/Miscellaneous Medication 1 each/ Sodium Chloride 125 mls @ 0 mls/hr IVPB INF [facility]; As Directed PRN Reason: Protocol Last Admin: 08/04/17 09:12 Dose: 125 mls Magnesium Hydroxide (Milk Of Magnesium) 30 ml PER TUBE DAILYPRN PRN PRN Reason: Constipation Magnesium Oxide (Magnesium Oxide) 400 mg PO BIDPRN PRN PRN Reason: FOR SERUM MAG 1.4 - 2.0 Magnesium Oxide (Magnesium Oxide) 800 mg PO PRN PRN PRN Reason: FOR SERUM MAG < 1.4 Methylprednisolone Sodium Succinate (Solu-Medrol) 20 mg IVP Q6HR [facility] Last Admin: 08/04/17 05:09 Dose: 20 mg Miscellaneous Medication (Pharmacy To Dose) 1 each IVPB DAILYPRN PRN PRN Reason: LABS Miscellaneous Medication (Phos-Nak) 1 pkt PO TIDPRN PRN PRN Reason: FOR PHOS LEVEL 1.0 - 1.8 Miscellaneous Medication (Phos-Nak) 2 pkt PO TIDPRN PRN PRN Reason: FOR PHOS LEVEL 0.5 - 1.0 Ccu Electrolyte (Replacement Protocol) 0 each FS PRN PRN PRN Reason: FOR ELECTROLYTE REPLACEMENT Ondansetron HCl (Zofran) 4 mg IVP Q6H PRN PRN Reason: Nausea/Vomiting Pantoprazole Sodium (Protonix) 40 mg IVP 2100 [facility] Last Admin: 08/03/17 21:14 Dose: 40 mg Potassium Chloride (K-Dur) 40 meq PO ASDIR PRN PRN Reason: FOR SERUM K+ 2.5 - 3.5 Potassium Chloride (Klor-Con) 40 meq PER TUBE ASDIR PRN PRN Reason: FOR SERUM K+ 2.5-3.5 Vecuronium [place] (Norcuron) 10 mg IV Q2H PRN PRN Reason: Agitation
[2017-08-04] MEDS: Multivitamins, Adult 10 ML, Folic Acid 1 MG, Thiamine HCl 100 MG in Dextrose 5 %-0.45 %... IV SCH (14:24)
[2017-08-04] MEDS ORDERED: Furosemide 40 MG/4 ML VIAL ONE (16:06)
[2017-08-04] MEDS ORDERED: Furosemide 40 MG/4 ML VIAL SLOW IVP SCH (16:15)
--- NOTE | 2017-08-04 16:32 | PRG ---
DATE OF SERVICE: 08/04/2017 SUBJECTIVE: Mr. Reddy did not awaken when he has a sedation holiday. He moves more but is not fol lowing commands. OBJECTIVE: VITAL SIGNS: Heart rate is 100, blood pressure is 160/81, respiratory rate in the 30s, oximetries in the low 90s. Intake and output is positive 3980. LUNGS: Remarkable for coarse equal breath sounds. HEART: Regular rhythm. ABDOMEN: Soft. LABORATORY DATA: White count 5.0, hemoglobin 8.5, platelets 75,000. Sodium 134, potassium 2.9, chloride 112, bicarbonate 16, BUN 9, creatinine 0.64. IMPRESSION: 1. Staphylococcus aureus sepsis, most likely from either the large decubitus ulcer that he had when he arrived or he has multiple excoriated areas on both lower extremities. 2. Pneumonia. 3. Adult respiratory distress syndrome. 4. Severe protein calorie malnutrition. 5. Hyperchloremia secondary to volume resuscitation. 6. Anemia, most likely secondary to chronic disease plus alcoholism. We will decrease his fluids an d start nutrition today. His chance of being weanable from mechanical ventilation within the next fe w days are close to zero. It is not clear whether he will awaken. It is unclear how long he was tawana n at home before she was found, then he certainly could have a hypoperfusion or hypoxic brain injury, mixed in with this. Critical care time was 30 minutes.
[2017-08-04] MEDS: Sodium Chloride 0.45% 1,000 ML IV SCH (16:35)
[2017-08-04] MEDS: Pantoprazole 40 MG VIAL IVP SCH (20:44)
[2017-08-04 21:17] LABS: Vancomycin, Trough 13.4 ug/mL
[2017-08-05] MEDS: Piperacillin/Tazobactam 3.375 GM in Sodium Chloride 0.9% 100 ML IVPB SCH ×2 (00:14→06:52)
[2017-08-05 04:32] LABS: Band 13 % (5-11); Hemoglobin 8.1 g/dL (14.0-18.0); Lymphocytes 9 % (21-51); MDiff Complete? YES; Mean Corpuscular HGB CONC 34.6 g/dL (32.0-36.0); Mean Corpuscular Hemoglobin 32.1 pg (27.0-31.0); Mean Corpuscular Volume 92.9 fl (80.0-94.0); Mean Platelet Volume 8.7 fL (7.4-10.4); Neutrophil 78 % (42-75); PLT Morphology Comment Appears Decreased; Platelet Count 77 thou/uL (130-400); RBC Distribution Width 13.2 % (11.5-14.5); Red Blood Cell (RBC) Count 2.52 mill/uL (4.70-6.10); White Blood Cell (WBC) Count 6.3 thou/uL (4.8-10.8)
[2017-08-05 04:33] LABS: ALT (SGPT) 11 U/L (8-55); AST (SGOT) 15 U/L (5-34); Albumin 3.6 g/dL (3.4-4.8); Alkaline Phosphatase 26 U/L (40-150); Anion Gap 11 mmol/L (10-20); BUN (Urea Nitrogen) 13 mg/dL (8.4-25.7); Bilirubin, Total 1.2 mg/dL (0.2-1.2); Calc. Creatinine Clearance 114 mL/min (70-130); Calcium 8.4 mg/dL (7.8-10.44); Carbon Dioxide 20 mmol/L (23-31); Chloride 109 mmol/L (98-107); Estimated GFR-MDRD Greater than 90; Globulin 1.7 g/dL (2.4-3.5); Glucose 145 mg/dL (80-115); Protein, Total 5.3 g/dL (5.8-8.1); Sodium 138 mmol/L (136-145)
[2017-08-05 04:43] LABS: Potassium 2.4 mmol/L (3.5-5.1)
[2017-08-05 07:25] LABS: Phosphorus 1.2 mg/dL (2.3-4.7)
[2017-08-05] MEDS ORDERED: Potassium Phosphate 30 MMOL in Sodium Chloride 0.9% 500 ML IVPB SCH (07:45)
[2017-08-05 07:46] LABS: Actual Bicarbonate (HCO3a) 20.4 mEq/L (22-26); Base Excess (BEa) -3.5 mEq/L (0 (+/-) 2.5); CO2 Tension 32.1 mmHg (35.0-45.0); Hemoglobin (Hb) 8.2 g/dL (14.0-18.0); O2 Tension (PaO2) 74.8 mmHg (80.0-100.0); pH, Arterial 7.42 (7.35-7.45)
[2017-08-05 07:47] LABS: Calcium, Ionized 1.2 mmol/L (1.12-1.30); Puncture Site RRA
[2017-08-05] MEDS: Enoxaparin Sodium 30 MG/0.3 ML SYRINGE SC SCH (07:47)
[2017-08-05 07:48] LABS: ALV-art Gradient 241.575 (0-20)
[2017-08-05] MEDS: Diltiazem HCl 125 MG, Admixture Fee 1 EACH in Sodium Chloride 0.9% 100 ML IVPB SCH (08:56)
--- NOTE | 2017-08-05 09:13 | RAD ---
PORTABLE CHEST: HISTORY: Dyspnea. CCU followup. COMPARISON: 08/04/17. FINDINGS: ET tube and NG tube remain in position. There are bilateral diffuse alveolar infiltrates throughout both lungs. No significant change from ester. POS: [facility]
--- NOTE | 2017-08-05 10:36 | PRG ---
DATE OF SERVICE: 08/05/2017 Mr. Reddy did awaken and follow commands weakly today. PHYSICAL EXAMINATION: VITAL SIGNS: Heart rate 86, blood pressure 111/66, respiratory rates per mechanical ventilation. LUNGS: His lungs are remarkable for rhonchi bilaterally. CARDIOVASCULAR: Regular rhythm. ABDOMEN: Soft and nontender. EXTREMITIES: Still unchanged with excoriated scabbed lesions on his skin. LABORATORY: White count 6.3, hemoglobin 8.1, platelets 77,000. Sodium 138, potassium 2.4, chloride 109, bicarbonate 20, BUN 13, creatinine 0.7, pH 7.42, CO2 32, pO2 74. Chest radiograph still shows diffuse infiltrates. IMPRESSION: 1. Staph aureus sepsis. 2. Pneumonia with adult respiratory distress syndrome. 3. Rule out endocarditis. 4. Anemia of chronic disease. 5. Thrombocytopenia secondary to sepsis and alcoholism. 6. Extreme intravascular volume depletion on presentation. 7. Hypokalemia. 8. Diabetes. 9. Elevated liver enzymes, associated with sepsis that are improving. 10. Hypoalbuminemia, improved with salt poor albumin. We will decrease his ventilatory support. His prognosis for functional recovery is extremely poor gi apurva that by exam was very inactive prior to admission. He has severe muscle wasting, has a decubitus ulcer on his sacrum that was present on admission. Critical care time was 30 minutes.
[2017-08-05] MEDS: Vancomycin HCl 1.25 GM in Sodium Chloride 0.9% 250 ML 250 ML IVPB SCH (10:44)
--- NOTE | 2017-08-05 11:21 | PDOC.PN ---
- Subjective Encounter Start Date: 08/05/17 Encounter Start Time: 10:10 pt is intubated, Patient seen and examined. No overnight events - Objective MAR Reviewed: Yes Vital Signs & Weight: Vital Signs (12 hours) Temp Pulse Resp BP Pulse Ox 08/05/17 10:00 26 H 08/05/17 09:01 86 111/66 08/05/17 08:00 97.9 F 27 H 08/05/17 07:47 98.1 F 73 27 H 100 08/05/17 06:58 73 119/71 08/05/17 06:57 100 08/05/17 06:55 78 26 H 100 08/05/17 06:00 26 H 08/05/17 04:00 27 H 08/05/17 02:00 32 H 08/05/17 00:00 27 H 08/04/17 23:52 80 26 H 100 Weight Admit Weight 163 lb Weight 173 lb 4.533 oz Most Recent Monitor Data Heart Rate from ECG 90 NIBP 113/68 NIBP BP-Mean 88 Respiration from ECG 26 SpO2 100 I&O: 08/04/17 08/05/17 08/06/17 06:59 06:59 06:59 Intake Total 6420.8 5583.9 100 Output Total 2440 4598 230 Balance 3980.8 985.9 -130 Result Diagrams: 08/05/17 04:11 08/05/17 04:11 Radiology Reviewed by me: Yes (chest xray) EKG Reviewed by me: Yes (nsr) Phys Exam - Physical Examination Constitutional: NAD intubated HEENT: PERRLA, sclera anicteric Neck: no JVD, supple Respiratory: no wheezing, no rales, no rhonchi Cardiovascular: RRR, no significant murmur, no rub Gastrointestinal: soft, no distention Musculoskeletal: no edema, pulses present Lymphatic: no nodes Skin: normal turgor Deviation from normal: bruise mulitple site Dx/Plan (1) Acute respiratory failure with hypoxia Code(s): J96.01 - ACUTE RESPIRATORY FAILURE WITH HYPOXIA Status: Acute (2) Community acquired bacterial pneumonia Code(s): J15.9 - UNSPECIFIED BACTERIAL PNEUMONIA Status: Acute (3) Demand ischemia of myocardium Code(s): I24.8 - OTHER FORMS OF ACUTE ISCHEMIC HEART DISEASE Status: Acute (4) Elevated brain natriuretic peptide (BNP) level Code(s): R79.89 - OTHER SPECIFIED ABNORMAL FINDINGS OF BLOOD CHEMISTRY Status : Acute (5) Hyperchloremic acidosis Code(s): E87.2 - ACIDOSIS Status: Acute (6) Hypokalemia Code(s): E87.6 - HYPOKALEMIA Status: Acute (7) Lactic acidosis Code(s): E87.2 - ACIDOSIS Status: Acute (8) Pancytopenia Code(s): D61.818 - OTHER PANCYTOPENIA Status: Acute (9) SVT (supraventricular tachycardia) Code(s): I47.1 - SUPRAVENTRICULAR TACHYCARDIA Status: Acute (10) Sepsis with acute organ dysfunction Code(s): A41.9 - SEPSIS, UNSPECIFIED ORGANISM; R65.20 - SEVERE SEPSIS WITHOUT SEPTIC SHOCK Status: Acute (11) Septic shock Code(s): A41.9 - SEPSIS, UNSPECIFIED ORGANISM; R65.21 - SEVERE SEPSIS WITH SEPTIC SHOCK Status: Acute (12) Staphylococcus aureus bacteremia Code(s): R78.81 - BACTEREMIA Status: Acute (13) UTI (urinary tract infection) Status: Acute (14) Alcohol abuse Code(s): F10.10 - ALCOHOL ABUSE, UNCOMPLICATED Status: Chronic (15) Protein-calorie malnutrition, moderate Code(s): E44.0 - MODERATE PROTEIN-CALORIE MALNUTRITION Status: Chronic (16) Tobacco abuse Code(s): Z72.0 - TOBACCO USE Status: Chronic (17) Hypophosphatemia Code(s): E83.39 - OTHER DISORDERS OF PHOSPHORUS METABOLISM Status: Acute - Plan cont current plan of care, continue antibiotics, social service agency director, respiratory therapy * currently on cardizem drip * continue empiric antibiotics as below * ventilator as per pulmonary * replace potassium phosphate * medication reviewed as below * symptomatic treatment. Review of Systems - Review of Systems Other: unable to review due to intubated status - Medications/Allergies Allergies/Adverse Reactions: Allergies Allergy/AdvReac Type Severity Reaction Status Date / Time No Known Allergies Allergy Unverified 08/02/17 12:53 Medications: Current Medications Acetaminophen (Tylenol Elixir) 650 mg PER TUBE Q4H PRN PRN Reason: Headache/Fever or MILD Pain Last Admin: 08/02/17 15:39 Dose: 650 mg Al Hydroxide/Mg Hydroxide (Maalox) 30 ml PER TUBE Q6H PRN PRN Reason: Heartburn or Indigestion Albuterol/Ipratropium (Duoneb) 3 ml NEB [id number] [facility] Last Admin: 08/05/17 06:55 Dose: 3 ml Bisacodyl (Dulcolax) 10 mg [place] Q24H PRN PRN Reason: Constipation Enoxaparin Sodium (Lovenox) 30 mg SC 0900 [facility] Last Admin: 08/05/17 07:47 Dose: Not Given Multivitamins 10 ml/ Folic Acid 1 mg/ Thiamine HCl 100 mg / Dextrose/Sodium Chloride 1,011.2 mls @ 100 mls/hr IV Q24HR [facility] Last Admin: 08/04/17 14:24 Dose: 1,011.2 mls Midazolam HCl (Versed) 100 mls @ 0 mls/hr IVPB INF [facility]; Titrate PRN Reason: Protocol Last Admin: 08/04/17 10:27 Dose: 100 mls Diltiazem HCl 125 mg/Miscellaneous Medication 1 each/ Sodium Chloride 125 mls @ 0 mls/hr IVPB INF [facility]; As Directed PRN Reason: Protocol Last Admin: 08/05/17 08:56 Dose: 125 mls Sodium Chloride (1/2 Normal Saline) 1,000 mls @ 50 mls/hr IV .Q20H [facility] Last Admin: 08/04/17 16:35 Dose: 1,000 mls Potassium Phosphate 30 mmol/ (Sodium Chloride) 510 mls @ 83.3 mls/hr IVPB ONE [facility] Stop: 08/05/17 14:00 Last Admin: 08/05/17 08:22 Dose: 510 mls Nafcillin Sodium 2 gm/ Sodium (Chloride) 100 mls @ 100 mls/hr IVPB Q6HR [facility] Magnesium Hydroxide (Milk Of Magnesium) 30 ml PER TUBE DAILYPRN PRN PRN Reason: Constipation Methylprednisolone Sodium Succinate (Solu-Medrol) 20 mg IVP Q6HR [facility] Last Admin: 08/05/17 04:47 Dose: 20 mg Miscellaneous Medication (Pharmacy To Dose) 1 each IVPB DAILYPRN PRN PRN Reason: LABS Ondansetron HCl (Zofran) 4 mg IVP Q6H PRN PRN Reason: Nausea/Vomiting Pantoprazole Sodium (Protonix) 40 mg IVP 2100 [facility] Last Admin: 08/04/17 20:44 Dose: 40 mg Sodium Chloride (Flush - Normal Saline) 10 ml IVF Q12HR [facility] Last Admin: 08/05/17 08:18 Dose: 10 ml Sodium Chloride (Flush - Normal Saline) 10 ml IVF PRN PRN PRN Reason: Saline Flush
[2017-08-05] MEDS: Nafcillin 2 GM in Sodium Chloride 0.9% 100 ML IVPB SCH ×3 (13:04→23:09)
[2017-08-05] MEDS: Multivitamins, Adult 10 ML, Folic Acid 1 MG, Thiamine HCl 100 MG in Dextrose 5 %-0.45 %... IV SCH (13:56)
--- NOTE | 2017-08-05 19:06 | PRG ---
DATE OF SERVICE: 08/05/2017 SUBJECTIVE: Mr. Reddy remains intubated and sedated. He looks like he is in atrial fibrillation w ith intermittent atrial arrhythmias and some sinus rhythm. REVIEW OF SYSTEMS: Not obtainable, on the ventilator. OBJECTIVE: VITAL SIGNS: Blood pressure 129/79, pulse 80-90 and its irregular. ABDOMEN: Soft, nontender. EXTREMITIES: No edema. PERTINENT LABORATORIES: Hemoglobin is 8.1, platelet count is low at 77. ASSESSMENT: 1. Atrial arrhythmias, probably related to lung disease. 2. Respiratory failure. 3. Low platelet count. PLAN: 1. Cannot be anticoagulated at this time. 2. He is on intravenous diltiazem. I will reduce the dose to just control the heart rate.
[2017-08-05] MEDS: Pantoprazole 40 MG VIAL IVP SCH (21:53)
[2017-08-05 22:12] LABS: Phosphorus 1.5 mg/dL (2.3-4.7); Potassium 2.9 mmol/L (3.5-5.1)
[2017-08-05] MEDS ORDERED: Potassium Chloride 40 MEQ in Premix Bag 1 BAG IVPB PRN (22:45)
[2017-08-05] MEDS ORDERED: Potassium Phosphate 12 MMOL in Sodium Chloride 0.9% 250 ML 250 ML IV PRN (22:45)
[2017-08-05] MEDS ORDERED: Magnesium Oxide 400 MG TAB PO PRN ×2 (22:45)
[2017-08-05] MEDS ORDERED: Potassium Chloride 20 MEQ TAB PO PRN (22:45)
[2017-08-05] MEDS ORDERED: Magnesium 2 GM/NS 0.9% 100 ML 2 GM in Premix Bag 1 BAG IVPB PRN (22:45)
[2017-08-05] MEDS ORDERED: Potassium Phosphate 15 MMOL in Sodium Chloride 0.9% 250 ML 250 ML IV PRN (22:45)
[2017-08-05] MEDS ORDERED: CCU ELECTROLYTE REPLACEMENT PROTOCOL FS PRN (22:45)
[2017-08-05] MEDS ORDERED: Potassium Chloride 40 MEQ in Sodium Chloride 0.9% 250 ML 250 ML IVPB PRN (22:45)
[2017-08-05] MEDS ORDERED: Potassium Phosphate 9 MMOL in Sodium Chloride 0.9% 100 ML IVPB PRN (22:45)
[2017-08-05] MEDS: Potassium Chloride 20 MEQ in Premix Bag 1 BAG IVPB SCH (23:06)
[2017-08-06] MEDS: Potassium Chloride 20 MEQ in Premix Bag 1 BAG IVPB SCH (01:36)
[2017-08-06 05:25] LABS: ALT (SGPT) 16 U/L (8-55); AST (SGOT) 20 U/L (5-34); Albumin 3.3 g/dL (3.4-4.8); Alkaline Phosphatase 55 U/L (40-150); Anion Gap 15 mmol/L (10-20); BUN (Urea Nitrogen) 19 mg/dL (8.4-25.7); Bilirubin, Total 0.9 mg/dL (0.2-1.2); Calc. Creatinine Clearance 112 mL/min (70-130); Calcium 8.3 mg/dL (7.8-10.44); Carbon Dioxide 19 mmol/L (23-31); Chloride 110 mmol/L (98-107); Estimated GFR-MDRD Greater than 90; Globulin 2.1 g/dL (2.4-3.5); Glucose 205 mg/dL (80-115); Potassium 3.9 mmol/L (3.5-5.1); Protein, Total 5.4 g/dL (5.8-8.1); Sodium 140 mmol/L (136-145)
[2017-08-06] MEDS: Nafcillin 2 GM in Sodium Chloride 0.9% 100 ML IVPB SCH ×4 (06:08→23:57)
[2017-08-06] MEDS: Sodium Chloride 0.45% 1,000 ML IV SCH ×2 (06:10→09:05)
[2017-08-06 06:24] LABS: Hemoglobin 9.6 g/dL (14.0-18.0); Lymphocytes 8 % (21-51); MDiff Complete? YES; Mean Corpuscular HGB CONC 34.2 g/dL (32.0-36.0); Mean Corpuscular Hemoglobin 31.8 pg (27.0-31.0); Mean Corpuscular Volume 93.1 fl (80.0-94.0); Mean Platelet Volume 8.5 fL (7.4-10.4); Monocytes 4 % (0-10); Neutrophil 88 % (42-75); PLT Morphology Comment Appears Decreased; Platelet Count 96 thou/uL (130-400); RBC Distribution Width 13.6 % (11.5-14.5); Red Blood Cell (RBC) Count 3.03 mill/uL (4.70-6.10); White Blood Cell (WBC) Count 6.3 thou/uL (4.8-10.8)
[2017-08-06 07:43] LABS: Actual Bicarbonate (HCO3a) 22.5 mEq/L (22-26); Base Excess (BEa) -0.9 mEq/L (0 (+/-) 2.5); CO2 Tension 31.5 mmHg (35.0-45.0); O2 Tension (PaO2) 76.4 mmHg (80.0-100.0); pH, Arterial 7.47 (7.35-7.45)
[2017-08-06 07:44] LABS: ALV-art Gradient 240.725 (0-20); Calcium, Ionized 1.2 mmol/L (1.12-1.30); Hematocrit-ABG 20.4 % (42.0-52.0); Hemoglobin (Hb) 6.9 g/dL (14.0-18.0); Puncture Site RRA
[2017-08-06] MEDS ORDERED: Potassium Phosphate 12 MMOL in Sodium Chloride 0.9% 100 ML IVPB SCH (08:00)
--- NOTE | 2017-08-06 08:27 | RAD ---
CHEST 1 VIEW: COMPARISON: 08/05/17. HISTORY: Respiratory distress. FINDINGS: Redemonstration of endotracheal and nasogastric tubes. Persistent opacification of the lung neri josé. The overall degree of opacification has not significantly changed. IMPRESSION: No significant change. POS: [facility]
[2017-08-06] MEDS: Enoxaparin Sodium 40 MG/0.4 ML SYRINGE SC SCH (09:04)
--- NOTE | 2017-08-06 09:35 | PDOC.CTH ---
Cardiology Progress Note - Subjective He remains sedated, intubated. - Objective Vital Signs Temp Pulse Resp BP Pulse Ox 08/06/17 07:49 98.1 F 107 H 38 H 100 08/06/17 06:58 107 H 152/83 H 08/06/17 06:57 112 H 30 H 99 08/06/17 04:00 97.7 F 08/06/17 02:07 105 H 118/80 08/06/17 00:56 91 136/82 08/06/17 00:00 97.7 F 08/05/17 22:17 90 141/79 H Admit Weight 163 lb Weight 173 lb 4.533 oz 08/05/17 08/06/17 08/07/17 06:59 06:59 06:59 Intake Total 5583.9 3582 Output Total 4598 1327 175 Balance 985.9 2255 -175 - Physical Examination General/Neuro: other: (intubated.) Neck: no JVD present Lungs: other: (reduced breath sounds) Heart: other: (Irreg) Abdomen: soft Extremities: other: (no edema.) - Telemetry Telemetry Rhythm: Afib HR 110's. - Labs Result Diagrams: 08/06/17 05:47 08/06/17 05:02 Troponin/CKMB CK-MB (CK-2) 11.6 ng/mL (0-6.6) H* 08/02/17 18:23 Troponin I 0.665 ng/mL (< 0.028) H* 08/02/17 18:23 - Assessment/Plan 1. Atrial arrhythmias, seems like Afib 2. Thrombocytopenia 3. Pneumonia 4. Sepsis PLAN: - Continue Diltiazem for rate control. - Continue to hold anticoagulation due to thrombocytopenia which is likely from severe illness.
--- NOTE | 2017-08-06 09:54 | PDOC.PN ---
- Subjective Encounter Start Date: 08/06/17 Encounter Start Time: 07:00 Patient seen and examined for respiratory failure, severe sepsis. pt is intubated, No overnight events - Objective MAR Reviewed: Yes Vital Signs & Weight: Vital Signs (12 hours) Temp Pulse Resp BP Pulse Ox 08/06/17 07:49 98.1 F 107 H 38 H 100 08/06/17 06:58 107 H 152/83 H 08/06/17 06:57 112 H 30 H 99 08/06/17 04:00 97.7 F 08/06/17 02:07 105 H 118/80 08/06/17 00:56 91 136/82 08/06/17 00:00 97.7 F 08/05/17 22:17 90 141/79 H Weight Admit Weight 163 lb Weight 173 lb 4.533 oz Most Recent Monitor Data Heart Rate from ECG 101 NIBP 145/81 NIBP BP-Mean 109 Respiration from ECG 21 SpO2 100 I&O: 08/05/17 08/06/17 08/07/17 06:59 06:59 06:59 Intake Total 5583.9 3582 Output Total 4598 1327 175 Balance 985.9 2255 -175 Result Diagrams: 08/06/17 05:47 08/06/17 05:02 Radiology Reviewed by me: Yes (chest xray) EKG Reviewed by me: Yes (nsr) Phys Exam - Physical Examination Constitutional: NAD intubated, sedated HEENT: PERRLA, sclera anicteric Neck: no JVD, supple Respiratory: no wheezing, no rales, no rhonchi Cardiovascular: RRR, no significant murmur, no rub Gastrointestinal: soft, no distention, positive bowel sounds Musculoskeletal: no edema, pulses present SCD+, Adames+ unable to assess Lymphatic: no nodes Deviation from normal: multiple skin lesion with dressing Dx/Plan (1) Acute respiratory failure with hypoxia Code(s): J96.01 - ACUTE RESPIRATORY FAILURE WITH HYPOXIA Status: Acute Comment: on ventilator (2) Community acquired bacterial pneumonia Code(s): J15.9 - UNSPECIFIED BACTERIAL PNEUMONIA Status: Acute (3) Demand ischemia of myocardium Code(s): I24.8 - OTHER FORMS OF ACUTE ISCHEMIC HEART DISEASE Status: Acute (4) Elevated brain natriuretic peptide (BNP) level Code(s): R79.89 - OTHER SPECIFIED ABNORMAL FINDINGS OF BLOOD CHEMISTRY Status : Acute (5) Hyperchloremic acidosis Code(s): E87.2 - ACIDOSIS Status: Acute (6) Hypokalemia Code(s): E87.6 - HYPOKALEMIA Status: Acute (7) Lactic acidosis Code(s): E87.2 - ACIDOSIS Status: Acute (8) Pancytopenia Code(s): D61.818 - OTHER PANCYTOPENIA Status: Acute (9) SVT (supraventricular tachycardia) Code(s): I47.1 - SUPRAVENTRICULAR TACHYCARDIA Status: Acute (10) Sepsis with acute organ dysfunction Code(s): A41.9 - SEPSIS, UNSPECIFIED ORGANISM; R65.20 - SEVERE SEPSIS WITHOUT SEPTIC SHOCK Status: Acute (11) Septic shock Code(s): A41.9 - SEPSIS, UNSPECIFIED ORGANISM; R65.21 - SEVERE SEPSIS WITH SEPTIC SHOCK Status: Acute (12) Staphylococcus aureus bacteremia Code(s): R78.81 - BACTEREMIA Status: Acute (13) UTI (urinary tract infection) Status: Acute (14) Alcohol abuse Code(s): F10.10 - ALCOHOL ABUSE, UNCOMPLICATED Status: Chronic (15) Protein-calorie malnutrition, moderate Code(s): E44.0 - MODERATE PROTEIN-CALORIE MALNUTRITION Status: Chronic (16) Tobacco abuse Code(s): Z72.0 - TOBACCO USE Status: Chronic (17) Hypophosphatemia Code(s): E83.39 - OTHER DISORDERS OF PHOSPHORUS METABOLISM Status: Acute - Plan cont current plan of care, continue antibiotics, respiratory therapy * continue vent as per pulmonary * on cardizem drip, with NSR * on empiric antibiotics, currently on Nefcillin * still on high PEEP, doubt candidate for extubation * replace potassium phosphate * medication reviewed as below * symptomatic treatment. Review of Systems - Review of Systems Other: unable to review due to intubated status - Medications/Allergies Allergies/Adverse Reactions: Allergies Allergy/AdvReac Type Severity Reaction Status Date / Time No Known Allergies Allergy Unverified 08/02/17 12:53 Medications: Current Medications Acetaminophen (Tylenol Elixir) 650 mg PER TUBE Q4H PRN PRN Reason: Headache/Fever or MILD Pain Last Admin: 08/02/17 15:39 Dose: 650 mg Al Hydroxide/Mg Hydroxide (Maalox) 30 ml PER TUBE Q6H PRN PRN Reason: Heartburn or Indigestion Albuterol/Ipratropium (Duoneb) 3 ml NEB [id number] [facility] Last Admin: 08/06/17 06:57 Dose: 3 ml Bisacodyl (Dulcolax) 10 mg [place] Q24H PRN PRN Reason: Constipation Enoxaparin Sodium (Lovenox) 40 mg SC 0900 [facility] Last Admin: 08/06/17 09:04 Dose: 40 mg Multivitamins 10 ml/ Folic Acid 1 mg/ Thiamine HCl 100 mg / Dextrose/Sodium Chloride 1,011.2 mls @ 100 mls/hr IV Q24HR [facility] Last Admin: 08/05/17 13:56 Dose: 1,011.2 mls Midazolam HCl (Versed) 100 mls @ 0 mls/hr IVPB INF [facility]; Titrate PRN Reason: Protocol Last Admin: 08/05/17 17:53 Dose: 100 mls Sodium Chloride (1/2 Normal Saline) 1,000 mls @ 50 mls/hr IV .Q20H [facility] Last Admin: 08/06/17 09:05 Dose: 1,000 mls Nafcillin Sodium 2 gm/ Sodium (Chloride) 100 mls @ 100 mls/hr IVPB Q6HR [facility] Last Admin: 08/06/17 06:08 Dose: 100 mls Diltiazem HCl 125 mg/Miscellaneous Medication 1 each/ Sodium Chloride 125 mls @ 4 mls/hr IVPB INF [facility] PRN Reason: Protocol Potassium Chloride 40 meq/ (Sodium Chloride) 270 mls @ 135 mls/hr IVPB [facility] PRN PRN Reason: FOR SERUM K+ 2.5 - 3.5 Potassium Chloride 40 meq/ (Device) 100 mls @ 50 mls/hr IVPB [facility] PRN PRN Reason: FOR SERUM K+ 2.5 - 3.5 Magnesium Sulfate 1 gm/ Sodium (Chloride) 102 mls @ 102 mls/hr IV PRN PRN PRN Reason: MAG LEVEL 1.4 - 2.0 Magnesium Sulfate 2 gm/ Device 100 mls @ 100 mls/hr IVPB [facility] PRN PRN Reason: MAGNESIUM < 1.4 Potassium Phosphate 9 mmol/ (Sodium Chloride) 103 mls @ 25.75 mls/hr IVPB [facility] PRN PRN Reason: Phosphate 1.0-1.8 Last Admin: 08/05/17 23:28 Dose: 103 mls Potassium Phosphate 12 mmol/ (Sodium Chloride) 254 mls @ 63.5 mls/hr IV [facility] PRN PRN Reason: Serum phosphate 0.5-0.9 Potassium Phosphate 15 mmol/ (Sodium Chloride) 255 mls @ 63.75 mls/hr IV [facility] PRN PRN Reason: Serum Phos < 0.5 Potassium Phosphate 12 mmol/ (Sodium Chloride) 104 mls @ 25 mls/hr IVPB 0800 [facility] Stop: 08/06/17 12:10 Last Admin: 08/06/17 09:03 Dose: 104 mls Magnesium Hydroxide (Milk Of Magnesium) 30 ml PER TUBE DAILYPRN PRN PRN Reason: Constipation Magnesium Oxide (Magnesium Oxide) 400 mg PO BIDPRN PRN PRN Reason: FOR SERUM MAG 1.4 - 2.0 Magnesium Oxide (Magnesium Oxide) 800 mg PO PRN PRN PRN Reason: FOR SERUM MAG < 1.4 Methylprednisolone Sodium Succinate (Solu-Medrol) 20 mg IVP Q6HR [facility] Last Admin: 08/06/17 06:08 Dose: 20 mg Miscellaneous Medication (Pharmacy To Dose) 1 each IVPB DAILYPRN PRN PRN Reason: LABS Miscellaneous Medication (Phos-Nak) 1 pkt PO TIDPRN PRN PRN Reason: FOR PHOS LEVEL 1.0 - 1.8 Miscellaneous Medication (Phos-Nak) 2 pkt PO TIDPRN PRN PRN Reason: FOR PHOS LEVEL 0.5 - 1.0 Ccu Electrolyte (Replacement Protocol) 0 each FS PRN PRN PRN Reason: FOR ELECTROLYTE REPLACEMENT Ondansetron HCl (Zofran) 4 mg IVP Q6H PRN PRN Reason: Nausea/Vomiting Pantoprazole Sodium (Protonix) 40 mg IVP 2100 [facility] Last Admin: 08/05/17 21:53 Dose: 40 mg Potassium Chloride (K-Dur) 40 meq PO ASDIR PRN PRN Reason: FOR SERUM K+ 2.5 - 3.5 Potassium Chloride (Klor-Con) 40 meq PER TUBE [facility] PRN PRN Reason: FOR SERUM K+ 2.5-3.5 Sodium Chloride (Flush - Normal Saline) 10 ml IVF Q12HR [facility] Last Admin: 08/06/17 09:06 Dose: 10 ml Sodium Chloride (Flush - Normal Saline) 10 ml IVF PRN PRN PRN Reason: Saline Flush
[2017-08-06] MEDS: Diltiazem HCl 125 MG, Admixture Fee 1 EACH in Sodium Chloride 0.9% 100 ML IVPB SCH (11:50)
[2017-08-06] MEDS ORDERED: Sodium Chloride 0.45% 1,000 ML IV SCH (15:27)
[2017-08-06] MEDS ORDERED: Furosemide 100 MG/10 ML VIAL SLOW IVP SCH (16:00)
--- NOTE | 2017-08-06 16:17 | PRG ---
DATE OF SERVICE: 08/06/2017 OBJECTIVE: VITAL SIGNS: Mr. Bernard heart rate is 105, his blood pressure is 145/75, respiratory rate was 26 this morning. I have decreased his ventilatory rate to 18. Intake and output is positive 2255. LUNGS: Remarkable for coarse rhonchi. HEART: Regular rhythm. ABDOMEN: Soft. EXT no edema excoriations unchanged NEURO nonfocal LABORATORY DATA: White count 6.3, hemoglobin 9.6, platelets 96,000. Sodium 140, potassium 3.9, chloride 110, bicarbonate 19, BUN 19, creatinine 0.71. PH is 7.47, CO2 31, PO2 76. Chest radiograph reviewed by me, still shows diffuse bilateral infiltrates. IMPRESSION: 1. Staphylococcus aureus bacteremia, oxacillin sensitive Staphylococcus. 2. Noncardiogenic pulmonary edema. 3. Possible coexistent pneumonia. 4. Extremely malnourished state. 5. History of heavy tobacco and alcohol use. PLAN: We will continue supportive care. His fluids probably need to be cut back at this point and perhaps we can diurese him without decline in renal function. His prognosis is quite poor. CRITICAL CARE TIME: 30 minutes. MTDD
[2017-08-06] MEDS: Pantoprazole 40 MG VIAL IVP SCH (20:25)
[2017-08-06] MEDS: Multivitamins, Adult 10 ML, Folic Acid 1 MG, Thiamine HCl 100 MG in Dextrose 5 %-0.45 %... IV SCH (20:25)
[2017-08-06] MEDS: Furosemide 100 MG/10 ML VIAL SLOW IVP SCH (20:30)
[2017-08-07 04:32] LABS: Band 3 % (5-11); Hemoglobin 9.9 g/dL (14.0-18.0); Lymphocytes 12 % (21-51); MDiff Complete? YES; Mean Corpuscular HGB CONC 34.1 g/dL (32.0-36.0); Mean Corpuscular Hemoglobin 32.5 pg (27.0-31.0); Mean Corpuscular Volume 95.4 fl (80.0-94.0); Mean Platelet Volume 9.1 fL (7.4-10.4); Metamyelocyte 1 % (0-0); Monocytes 3 % (0-10); Neutrophil 81 % (42-75); Nucleated RBC 1 % (0); PLT Morphology Comment Appears Adequate; Platelet Count 130 thou/uL (130-400); RBC Distribution Width 13.8 % (11.5-14.5); Red Blood Cell (RBC) Count 3.06 mill/uL (4.70-6.10); White Blood Cell (WBC) Count 6.8 thou/uL (4.8-10.8)
[2017-08-07] MEDS: Diltiazem HCl 125 MG, Admixture Fee 1 EACH in Sodium Chloride 0.9% 100 ML IVPB SCH ×3 (05:04→23:57)
[2017-08-07] MEDS: Nafcillin 2 GM in Sodium Chloride 0.9% 100 ML IVPB SCH ×4 (05:04→23:57)
[2017-08-07 06:00] LABS: ALT (SGPT) 25 U/L (8-55); AST (SGOT) 26 U/L (5-34); Albumin 3.4 g/dL (3.4-4.8); Alkaline Phosphatase 58 U/L (40-150); Anion Gap 11 mmol/L (10-20); BUN (Urea Nitrogen) 20 mg/dL (8.4-25.7); Calc. Creatinine Clearance 110 mL/min (70-130); Calcium 8.5 mg/dL (7.8-10.44); Carbon Dioxide 28 mmol/L (23-31); Chloride 105 mmol/L (98-107); Estimated GFR-MDRD Greater than 90; Globulin 2.2 g/dL (2.4-3.5); Glucose 149 mg/dL (80-115); Potassium 3.2 mmol/L (3.5-5.1); Protein, Total 5.6 g/dL (5.8-8.1); Sodium 141 mmol/L (136-145)
[2017-08-07 07:12] LABS: Actual Bicarbonate (HCO3a) 26.1 mEq/L (22-26); Base Excess (BEa) 3.6 mEq/L (0 (+/-) 2.5); CO2 Tension 31.8 mmHg (35.0-45.0); Calcium, Ionized 1.2 mmol/L (1.12-1.30); Hematocrit-ABG 26.9 % (42.0-52.0); Hemoglobin (Hb) 9.2 g/dL (14.0-18.0); O2 Tension (PaO2) 128.3 mmHg (80.0-100.0); Puncture Site RRA; pH, Arterial 7.53 (7.35-7.45)
--- NOTE | 2017-08-07 08:12 | RAD ---
CHEST 1 VIEW: Date: 08/07/17 HISTORY: 66-year-old male with history of respiratory insufficiency. COMPARISON: 08/06/17. FINDINGS: NG tube and endotracheal tubes remain in place. Improving bilateral interstitial and alveolar opacity changes when compared to the prior study. There is more persistent density in the right base. IMPRESSION: Considerable improvement in the extensive bilateral interstitial and alveolar opacities from prior st udy. Continue short-term follow-up. POS: LAUREN
--- NOTE | 2017-08-07 10:08 | PDOC.PN ---
- Subjective Encounter Start Date: 08/07/17 Encounter Start Time: 09:20 Patient seen and examined for sepsis. currently on vent, awake on vent. No overnight events - Objective MAR Reviewed: Yes Vital Signs & Weight: Vital Signs (12 hours) Temp Pulse Resp BP Pulse Ox 08/07/17 08:25 97.7 F 08/07/17 08:00 97.7 F 107 H 18 100 08/07/17 06:54 108 H 144/94 H 08/07/17 06:52 102 H 18 99 08/07/17 06:00 19 08/07/17 04:00 98.2 F 08/07/17 02:00 23 H 08/07/17 00:00 97.9 F 28 H 08/06/17 23:33 103 H 22 H 100 Weight Admit Weight 163 lb Weight 162 lb 7.691 oz Most Recent Monitor Data Heart Rate from ECG 115 NIBP 167/99 NIBP BP-Mean 110 Respiration from ECG 17 SpO2 100 I&O: 08/06/17 08/07/17 08/08/17 06:59 06:59 06:59 Intake Total 3582 2358.1 47.2 Output Total 1327 6345 250 Balance 2255 -3986.9 -202.8 Result Diagrams: 08/07/17 04:14 08/07/17 05:39 Radiology Reviewed by me: Yes (chest xray) EKG Reviewed by me: Yes (tachycardia) Phys Exam - Physical Examination Constitutional: NAD intubated HEENT: PERRLA, sclera anicteric Neck: no JVD, supple Respiratory: no wheezing, no rales, no rhonchi Cardiovascular: RRR, no significant murmur, no rub tachycardia Gastrointestinal: soft, no distention, positive bowel sounds Musculoskeletal: no edema, pulses present Deviation from normal: somewhat awake on vent Deviation from normal: multiple skin lesion Dx/Plan (1) Acute respiratory failure with hypoxia Code(s): J96.01 - ACUTE RESPIRATORY FAILURE WITH HYPOXIA Status: Acute Comment: on ventilator (2) Community acquired bacterial pneumonia Code(s): J15.9 - UNSPECIFIED BACTERIAL PNEUMONIA Status: Acute (3) Demand ischemia of myocardium Code(s): I24.8 - OTHER FORMS OF ACUTE ISCHEMIC HEART DISEASE Status: Acute (4) Elevated brain natriuretic peptide (BNP) level Code(s): R79.89 - OTHER SPECIFIED ABNORMAL FINDINGS OF BLOOD CHEMISTRY Status : Acute (5) Hyperchloremic acidosis Code(s): E87.2 - ACIDOSIS Status: Acute (6) Hypokalemia Code(s): E87.6 - HYPOKALEMIA Status: Acute (7) Lactic acidosis Code(s): E87.2 - ACIDOSIS Status: Acute (8) Pancytopenia Code(s): D61.818 - OTHER PANCYTOPENIA Status: Acute (9) SVT (supraventricular tachycardia) Code(s): I47.1 - SUPRAVENTRICULAR TACHYCARDIA Status: Acute (10) Sepsis with acute organ dysfunction Code(s): A41.9 - SEPSIS, UNSPECIFIED ORGANISM; R65.20 - SEVERE SEPSIS WITHOUT SEPTIC SHOCK Status: Acute (11) Septic shock Code(s): A41.9 - SEPSIS, UNSPECIFIED ORGANISM; R65.21 - SEVERE SEPSIS WITH SEPTIC SHOCK Status: Acute (12) Staphylococcus aureus bacteremia Code(s): R78.81 - BACTEREMIA Status: Acute (13) UTI (urinary tract infection) Status: Acute (14) Alcohol abuse Code(s): F10.10 - ALCOHOL ABUSE, UNCOMPLICATED Status: Chronic (15) Protein-calorie malnutrition, moderate Code(s): E44.0 - MODERATE PROTEIN-CALORIE MALNUTRITION Status: Chronic (16) Tobacco abuse Code(s): Z72.0 - TOBACCO USE Status: Chronic (17) Hypophosphatemia Code(s): E83.39 - OTHER DISORDERS OF PHOSPHORUS METABOLISM Status: Acute - Plan cont current plan of care, continue antibiotics, respiratory therapy * continue nefcillin * ventilator as per pulmonary, weaning as per per pulmonary * prognosis is guarded * medication reviewed as below * symptomatic treatment. Review of Systems - Review of Systems Other: unable to review due to intubated status - Medications/Allergies Allergies/Adverse Reactions: Allergies Allergy/AdvReac Type Severity Reaction Status Date / Time No Known Allergies Allergy Unverified 08/02/17 12:53 Medications: Current Medications Acetaminophen (Tylenol Elixir) 650 mg PER TUBE Q4H PRN PRN Reason: Headache/Fever or MILD Pain Last Admin: 08/02/17 15:39 Dose: 650 mg Al Hydroxide/Mg Hydroxide (Maalox) 30 ml PER TUBE Q6H PRN PRN Reason: Heartburn or Indigestion Albuterol/Ipratropium (Duoneb) 3 ml NEB [id number] [facility] Last Admin: 08/07/17 06:52 Dose: 3 ml Bisacodyl (Dulcolax) 10 mg [place] Q24H PRN PRN Reason: Constipation Enoxaparin Sodium (Lovenox) 40 mg SC 0900 [facility] Last Admin: 08/06/17 09:04 Dose: 40 mg Furosemide (Lasix) 60 mg SLOW IVP BID [facility] Last Admin: 08/06/17 20:30 Dose: Not Given Multivitamins 10 ml/ Folic Acid 1 mg/ Thiamine HCl 100 mg / Dextrose/Sodium Chloride 1,011.2 mls @ 100 mls/hr IV Q24HR [facility] Last Admin: 08/06/17 20:25 Dose: Not Given Midazolam HCl (Versed) 100 mls @ 0 mls/hr IVPB INF [facility]; Titrate PRN Reason: Protocol Last Admin: 08/06/17 19:31 Dose: 100 mls Nafcillin Sodium 2 gm/ Sodium (Chloride) 100 mls @ 100 mls/hr IVPB Q6HR [facility] Last Admin: 08/07/17 05:04 Dose: 100 mls Diltiazem HCl 125 mg/Miscellaneous Medication 1 each/ Sodium Chloride 125 mls @ 4 mls/hr IVPB INF [facility] PRN Reason: Protocol Last Admin: 08/07/17 05:04 Dose: 125 mls Sodium Chloride (1/2 Normal Saline) 1,000 mls @ 0 mls/hr IV .Q0M [facility] PRN Reason: KVO Potassium Chloride 40 meq/ (Device) 100 mls @ 25 mls/hr IVPB ONE [facility] Methylprednisolone Sodium Succinate (Solu-Medrol) 20 mg IVP Q6HR [facility] Last Admin: 08/07/17 05:04 Dose: 20 mg Ondansetron HCl (Zofran) 4 mg IVP Q6H PRN PRN Reason: Nausea/Vomiting Pantoprazole Sodium (Protonix) 40 mg IVP 2100 [facility] Last Admin: 08/06/17 20:25 Dose: 40 mg Sodium Chloride (Flush - Normal Saline) 10 ml IVF Q12HR [facility] Last Admin: 08/06/17 20:26 Dose: 10 ml Sodium Chloride (Flush - Normal Saline) 10 ml IVF PRN PRN PRN Reason: Saline Flush
[2017-08-07] MEDS: Enoxaparin Sodium 40 MG/0.4 ML SYRINGE SC SCH (10:10)
[2017-08-07] MEDS: Furosemide 100 MG/10 ML VIAL SLOW IVP SCH ×2 (10:10→20:34)
[2017-08-07] MEDS ORDERED: Potassium Chloride 40 MEQ in Premix Bag 1 BAG IVPB SCH (10:30)
--- NOTE | 2017-08-07 12:07 | PDOC.CTH ---
Cardiology Progress Note - Subjective He remains intubated, on sedation but awake. - Objective Vital Signs Temp Pulse Resp BP Pulse Ox 08/07/17 10:31 103 H 161/97 H 08/07/17 08:25 97.7 F 08/07/17 08:00 97.7 F 107 H 18 100 08/07/17 06:54 108 H 144/94 H 08/07/17 06:52 102 H 18 99 08/07/17 06:00 19 08/07/17 04:00 98.2 F 08/07/17 02:00 23 H Admit Weight 163 lb Weight 162 lb 7.691 oz 08/06/17 08/07/17 08/08/17 06:59 06:59 06:59 Intake Total 3582 2358.1 47.2 Output Total 1327 6345 250 Balance 2255 -3986.9 -202.8 - Physical Examination General/Neuro: NAD Neck: no JVD present Lungs: other: (reduced breath sounds. ) Heart: other: (irreg) Abdomen: NT/ND Extremities: other: (no edema) - Telemetry Telemetry Rhythm: AFib HR 130's . - Labs Result Diagrams: 08/07/17 04:14 08/07/17 05:39 Troponin/CKMB CK-MB (CK-2) 11.6 ng/mL (0-6.6) H* 08/02/17 18:23 Troponin I 0.665 ng/mL (< 0.028) H* 08/02/17 18:23 - Assessment/Plan 1. Atrial arrhythmias, in Afib now 2. Thrombocytopenia 3. Pneumonia 4. Sepsis PLAN: - Continue Diltiazem for rate control. Will increase drip rate now. - Thrombocytopenia has improved - Will start full anticoagulation. - Replace K.
[2017-08-07] MEDS ORDERED: Metoprolol Tartrate 5 MG/5 ML VIAL IVP SCH (17:30)
--- NOTE | 2017-08-07 17:34 | PRG ---
DATE OF SERVICE: 08/07/2017 SUBJECTIVE: Mr. Reddy ventilation yesterday. He will wake up and weakly follow comman ds with sedation holidays. OBJECTIVE: VITAL SIGNS: Afebrile, heart rate is 111, blood pressure 157/90, respiratory rate is 18, sats are no w 100%. He is negative 3986 with diuresis yesterday. LUNGS: Clear anteriorly. HEART: Regular rhythm. S1 and S2 were distant. ABDOMEN: Soft and nontender. EXTREMITIES: Without asymmetry. He moves all 4 extremities at . LABORATORY DATA: White count is 6.8, hemoglobin is 9.9, platelets 113,000. Sodium 141, potassium 3. 2, chloride 105, bicarbonate 28, BUN 20, creatinine 0.68. PH 7.53, CO2 of 31, pO2 128. IMAGING: Chest radiograph shows improvement in pulmonary infiltrates with diuresis. IMPRESSION AND PLAN: 1. Respiratory failure associated with Staph sepsis with multiple cutaneous wound. 2. Adult respiratory distress syndrome. 3. History of heavy alcohol and tobacco use. 4. Severe protein calorie malnutrition. 5. Respiratory failure, still not weanable, but approaching a point where he can be weaned. We may be able to avoid a tracheostomy in this gentleman. Critical care time was 30 minutes. Potassium abigail l be replaced. We will continue with steroids, nebulizer treatments, antimicrobial therapy, master mechanic al ventilation. His ventilatory rate will be decreased. His PEEP has been decreased from 10 to 5.
[2017-08-07] MEDS: Pantoprazole 40 MG VIAL IVP SCH (20:34)
[2017-08-07] MEDS: Enoxaparin Sodium 80 MG/0.8 ML SYRINGE SC SCH (20:34)
[2017-08-08 04:03] LABS: ALT (SGPT) 40 U/L (8-55); AST (SGOT) 26 U/L (5-34); Albumin 3.5 g/dL (3.4-4.8); Alkaline Phosphatase 56 U/L (40-150); Anion Gap 12 mmol/L (10-20); BUN (Urea Nitrogen) 24 mg/dL (8.4-25.7); Bilirubin, Total 1.3 mg/dL (0.2-1.2); Calc. Creatinine Clearance 107 mL/min (70-130); Calcium 8.5 mg/dL (7.8-10.44); Carbon Dioxide 26 mmol/L (23-31); Chloride 105 mmol/L (98-107); Estimated GFR-MDRD Greater than 90; Globulin 2.3 g/dL (2.4-3.5); Glucose 145 mg/dL (80-115); Potassium 3.3 mmol/L (3.5-5.1); Protein, Total 5.8 g/dL (5.8-8.1); Sodium 140 mmol/L (136-145)
[2017-08-08 04:55] LABS: Band 6 % (5-11); Bite Cells SLIGHT = 2-5 cells (100X) (0-1/hpf); Hemoglobin 10.3 g/dL (14.0-18.0); Lymphocytes 5 % (21-51); MDiff Complete? YES; Mean Corpuscular HGB CONC 34.5 g/dL (32.0-36.0); Mean Corpuscular Hemoglobin 32.7 pg (27.0-31.0); Mean Corpuscular Volume 94.9 fl (80.0-94.0); Mean Platelet Volume 8.8 fL (7.4-10.4); Monocytes 5 % (0-10); Neutrophil 84 % (42-75); PLT Morphology Comment Appears Adequate; Platelet Count 150 thou/uL (130-400); Polychromasia SLIGHT = 2-3 cells (100X) (0-2/hpf); RBC Distribution Width 14.2 % (11.5-14.5); Red Blood Cell (RBC) Count 3.16 mill/uL (4.70-6.10); White Blood Cell (WBC) Count 12.2 thou/uL (4.8-10.8)
[2017-08-08] MEDS: Nafcillin 2 GM in Sodium Chloride 0.9% 100 ML IVPB SCH ×4 (05:20→23:08)
[2017-08-08] MEDS: Diltiazem HCl 125 MG, Admixture Fee 1 EACH in Sodium Chloride 0.9% 100 ML IVPB SCH (09:03)
[2017-08-08] MEDS: Furosemide 100 MG/10 ML VIAL SLOW IVP SCH (09:06)
[2017-08-08] MEDS: Enoxaparin Sodium 80 MG/0.8 ML SYRINGE SC SCH ×2 (09:06→20:24)
[2017-08-08 09:10] LABS: Actual Bicarbonate (HCO3a) 24.3 mEq/L (22-26); Base Excess (BEa) 2.3 mEq/L (0 (+/-) 2.5); Calcium, Ionized 1.1 mmol/L (1.12-1.30); Hemoglobin (Hb) 10.1 g/dL (14.0-18.0); O2 Tension (PaO2) 88.7 mmHg (80.0-100.0); pH, Arterial 7.54 (7.35-7.45)
[2017-08-08 09:11] LABS: Puncture Site RRA
--- NOTE | 2017-08-08 09:49 | RAD ---
SEMIUPRIGHT PORTABLE CHEST 1 VIEW: Date: 08/08/17 HISTORY: 66-year-old male with follow-up respiratory insufficiency. FINDINGS: Bilateral interstitial and alveolar parenchymal changes are noted throughout both lungs, somewhat mor e dense in the bases and more prominent than on prior study. Heart size remains normal. IMPRESSION: Worsening bilateral mostly lower lung zone interstitial and alveolar opacity changes from prior study . These parenchymal changes do, however, appear improved when dating back to 08/05/17. POS: LAUREN
[2017-08-08] MEDS ORDERED: Potassium Chloride 40 MEQ in Premix Bag 1 BAG IVPB SCH (10:30)
--- NOTE | 2017-08-08 12:13 | PDOC.PN ---
- Subjective Encounter Start Date: 08/08/17 Encounter Start Time: 08:30 Subjective: awakens to touch, on vent -: is not oriented - Objective MAR Reviewed: Yes Vital Signs & Weight: Vital Signs (12 hours) Temp Pulse Resp Pulse Ox 08/08/17 10:00 26 H 08/08/17 08:00 98.5 F 28 H 08/08/17 06:58 100 08/08/17 06:57 116 H 30 H 100 08/08/17 06:00 28 H 08/08/17 04:00 98.7 F 27 H 08/08/17 02:00 30 H Weight Admit Weight 163 lb Weight 152 lb 8.958 oz Most Recent Monitor Data Heart Rate from ECG 140 NIBP 140/90 NIBP BP-Mean 104 Respiration from ECG 26 SpO2 100 I&O: 08/07/17 08/08/17 08/09/17 06:59 06:59 06:59 Intake Total 2358.1 1919.0 129.9 Output Total 6345 5770 1010 Balance -3986.9 -3851.0 -880.1 Result Diagrams: 08/08/17 03:30 08/08/17 03:30 Phys Exam - Physical Examination HEENT: PERRLA, sclera anicteric Neck: no JVD, supple Respiratory: no wheezing, no rales Cardiovascular: RRR, no significant murmur Gastrointestinal: soft, non-tender, positive bowel sounds Musculoskeletal: no edema, pulses present Neurological: non-focal, moves all 4 limbs Dx/Plan (1) Acute respiratory failure with hypoxia Code(s): J96.01 - ACUTE RESPIRATORY FAILURE WITH HYPOXIA Status: Acute Comment: on ventilator (2) Community acquired bacterial pneumonia Code(s): J15.9 - UNSPECIFIED BACTERIAL PNEUMONIA Status: Acute (3) Demand ischemia of myocardium Code(s): I24.8 - OTHER FORMS OF ACUTE ISCHEMIC HEART DISEASE Status: Acute (4) SVT (supraventricular tachycardia) Code(s): I47.1 - SUPRAVENTRICULAR TACHYCARDIA Status: Acute (5) Sepsis with acute organ dysfunction Code(s): A41.9 - SEPSIS, UNSPECIFIED ORGANISM; R65.20 - SEVERE SEPSIS WITHOUT SEPTIC SHOCK Status: Acute (6) UTI (urinary tract infection) Status: Acute Qualifiers: Urinary tract infection type: acute cystitis Hematuria presence: without hematuria Qualified Code(s): N30.00 - Acute cystitis without hematuria (7) Alcohol abuse Code(s): F10.10 - ALCOHOL ABUSE, UNCOMPLICATED Status: Chronic (8) Protein-calorie malnutrition, moderate Code(s): E44.0 - MODERATE PROTEIN-CALORIE MALNUTRITION Status: Chronic (9) Tobacco abuse Code(s): Z72.0 - TOBACCO USE Status: Chronic - Plan is on nafcillin 2g q6h -: cardizem drip, lovenox 70mg q12h for svt/afib, ef 50% -: on lasix 60 q12h, steroids -: weaning per pulm advice -: stool for c.diff, had 2 loose bm's from am * . Review of Systems - Medications/Allergies Allergies/Adverse Reactions: Allergies Allergy/AdvReac Type Severity Reaction Status Date / Time No Known Allergies Allergy Unverified 08/02/17 12:53 Medications: Current Medications Acetaminophen (Tylenol Elixir) 650 mg PER TUBE Q4H PRN PRN Reason: Headache/Fever or MILD Pain Last Admin: 08/02/17 15:39 Dose: 650 mg Al Hydroxide/Mg Hydroxide (Maalox) 30 ml PER TUBE Q6H PRN PRN Reason: Heartburn or Indigestion Albuterol/Ipratropium (Duoneb) 3 ml NEB [id number] [facility] Last Admin: 08/08/17 06:57 Dose: 3 ml Bisacodyl (Dulcolax) 10 mg [place] Q24H PRN PRN Reason: Constipation Enoxaparin Sodium (Lovenox) 70 mg SC 0900,2100 [facility] Last Admin: 08/08/17 09:06 Dose: 70 mg Furosemide (Lasix) 60 mg SLOW IVP BID [facility] Last Admin: 08/08/17 09:06 Dose: 60 mg Midazolam HCl (Versed) 100 mls @ 0 mls/hr IVPB INF [facility]; Titrate PRN Reason: Protocol Last Admin: 08/07/17 19:44 Dose: 100 mls Nafcillin Sodium 2 gm/ Sodium (Chloride) 100 mls @ 100 mls/hr IVPB Q6HR [facility] Last Admin: 08/08/17 11:40 Dose: 100 mls Diltiazem HCl 125 mg/Miscellaneous Medication 1 each/ Sodium Chloride 125 mls @ 4 mls/hr IVPB INF [facility] PRN Reason: Protocol Last Admin: 08/08/17 09:03 Dose: 125 mls Sodium Chloride (1/2 Normal Saline) 1,000 mls @ 0 mls/hr IV .Q0M [facility] PRN Reason: KVO Methylprednisolone Sodium Succinate (Solu-Medrol) 20 mg IVP Q6HR [facility] Last Admin: 08/08/17 11:44 Dose: 20 mg Ondansetron HCl (Zofran) 4 mg IVP Q6H PRN PRN Reason: Nausea/Vomiting Pantoprazole Sodium (Protonix) 40 mg IVP 2100 [facility] Last Admin: 08/07/17 20:34 Dose: 40 mg Sodium Chloride (Flush - Normal Saline) 10 ml IVF Q12HR [facility] Last Admin: 08/08/17 09:07 Dose: 10 ml Sodium Chloride (Flush - Normal Saline) 10 ml IVF PRN PRN PRN Reason: Saline Flush
--- NOTE | 2017-08-08 12:29 | PDOC.CTH ---
Cardiology Progress Note - Subjective Remains sedated, intubated. - Objective Vital Signs Temp Pulse Resp Pulse Ox 08/08/17 12:00 98.4 F 08/08/17 10:00 26 H 08/08/17 08:00 98.5 F 28 H 08/08/17 07:48 98.5 F 121 H 28 H 100 08/08/17 06:58 100 08/08/17 06:57 116 H 30 H 100 08/08/17 06:00 28 H 08/08/17 04:00 98.7 F 27 H 08/08/17 02:00 30 H Admit Weight 163 lb Weight 152 lb 8.958 oz 08/07/17 08/08/17 08/09/17 06:59 06:59 06:59 Intake Total 2358.1 1919.0 129.9 Output Total 6345 5770 1160 Balance -3986.9 -3851.0 -1030.1 - Physical Examination General/Neuro: other: (Intubated) Neck: no JVD present Lungs: other: (Reduced breath sounds) Heart: RRR Abdomen: NT/ND Extremities: other: (no edema) - Telemetry Telemetry Rhythm: Afib HR 130's - Labs Result Diagrams: 08/08/17 03:30 08/08/17 03:30 Troponin/CKMB CK-MB (CK-2) 11.6 ng/mL (0-6.6) H* 08/02/17 18:23 Troponin I 0.665 ng/mL (< 0.028) H* 08/02/17 18:23 - Assessment/Plan 1. Atrial arrhythmias, in Afib RVR now. 2. Thrombocytopenia 3. Pneumonia 4. Sepsis PLAN: - Continue diltiazem drip. - Will start scheduled IV metoprolol 5 mg q6hrs. - Thrombocytopenia resolved. - Continue full anticoagulation. Tolerating it well. - Replace K.
[2017-08-08] MEDS ORDERED: Metoprolol Tartrate 5 MG/5 ML VIAL IVP SCH (12:30)
[2017-08-08] MEDS: Metoprolol Tartrate 5 MG/5 ML VIAL IVP SCH ×3 (12:50→23:07)
--- NOTE | 2017-08-08 17:14 | PRG ---
DATE OF SERVICE: 08/08/2017 SUBJECTIVE: Mr. Reddy remains mechanically ventilated. He became very tachycardic and developed just copious secretions with this tachycardia yesterday. OBJECTIVE: VITAL SIGNS: Afebrile. Respiratory rates in the 20s, blood pressure 111/70. Intake and output has been over 3 liters negative the last 2 days. He was 38/ 51 negative this morning for the previous 24 hours. LUNGS: Remarkable for coarse equal breath sounds. HEART: Regular rhythm. ABDOMEN: Soft. EXTREMITIES: Without asymmetry. He was in MAT earlier. His most recent rhythm is atrial fibrillation. LABORATORY DATA: White count 12.2, hemoglobin 10.3, platelets 150,000. Sodium 140, potassium 3.3, chloride 105, bicarbonate 26, BUN 24, creatinine 0.7. Chest radiograph shows worsening of his radiograph today which most likely is related to his rhythm disturbance. IMPRESSION: 1. Multiorgan dysfunction associated with pneumonia. Underlying probable obstructive lung disease, multifocal atrial tachycardia, now atrial fibrillation 2. Extreme deconditioning and protein calorie malnutrition. 3. Staph aureus bacteremia. Prognosis is dismal. We will continue with supportive care and gradual decrease in ventilatory support. Comfort care would be appropriate in my opinion. He is fully anticoagulated with Lovenox. I would be concerned about doing this for more than a few days. We will continue to try to diurese him down. Continue steroids and antimicrobial therapy as well as nebulizer treatments and try to get rate control. Invasive procedures or more aggressive support that we are already doing in my opinion would not be appropriate. Critical care time 35 minutes. MTDD
[2017-08-08] MEDS ORDERED: Amiodarone HCl 150 MG, Admixture Fee 1 EACH in Dextrose 5% in Water 100 ML IVPB SCH (17:15)
[2017-08-08] MEDS: Amiodarone HCl 450 MG, Admixture Fee 1 EACH in Dextrose 5% in Water 250 ML IVPB SCH (18:10)
[2017-08-08] MEDS ORDERED: Digoxin 0.5 MG/2 ML AMP SLOW IVP SCH (19:30)
[2017-08-08] MEDS: Pantoprazole 40 MG VIAL IVP SCH (20:24)
[2017-08-08] MEDS: Acetaminophen 650 MG/20.3 ML UDCUP PER TUBE PRN (20:24)
[2017-08-08] MEDS: Ketorolac Tromethamine 30 MG/ML VIAL IVP SCH (22:45)
[2017-08-09] MEDS: Ketorolac Tromethamine 30 MG/ML VIAL IVP SCH ×4 (04:33→21:31)
[2017-08-09] MEDS: Metoprolol Tartrate 5 MG/5 ML VIAL IVP SCH ×3 (05:09→17:40)
[2017-08-09] MEDS: Nafcillin 2 GM in Sodium Chloride 0.9% 100 ML IVPB SCH ×3 (05:10→17:39)
[2017-08-09] MEDS: Amiodarone HCl 450 MG, Admixture Fee 1 EACH in Dextrose 5% in Water 250 ML IVPB SCH (05:25)
[2017-08-09 05:53] LABS: ALT (SGPT) 31 U/L (8-55); AST (SGOT) 19 U/L (5-34); Albumin 3.1 g/dL (3.4-4.8); Alkaline Phosphatase 57 U/L (40-150); Anion Gap 12 mmol/L (10-20); BUN (Urea Nitrogen) 34 mg/dL (8.4-25.7); Bilirubin, Total 1.2 mg/dL (0.2-1.2); Calc. Creatinine Clearance 85 mL/min (70-130); Calcium 8.5 mg/dL (7.8-10.44); Carbon Dioxide 25 mmol/L (23-31); Chloride 111 mmol/L (98-107); Estimated GFR-MDRD Greater than 90; Globulin 2.7 g/dL (2.4-3.5); Glucose 169 mg/dL (80-115); Protein, Total 5.8 g/dL (5.8-8.1); Sodium 145 mmol/L (136-145)
[2017-08-09 05:55] LABS: Band 27 % (5-11); Hemoglobin 9.6 g/dL (14.0-18.0); Lymphocytes 2 % (21-51); MDiff Complete? YES; Mean Corpuscular HGB CONC 33.9 g/dL (32.0-36.0); Mean Corpuscular Hemoglobin 32.3 pg (27.0-31.0); Mean Corpuscular Volume 95.2 fl (80.0-94.0); Mean Platelet Volume 8.9 fL (7.4-10.4); Monocytes 7 % (0-10); Neutrophil 64 % (42-75); PLT Morphology Comment Appears Adequate; Platelet Count 144 thou/uL (130-400); RBC Distribution Width 14.1 % (11.5-14.5); Red Blood Cell (RBC) Count 2.97 mill/uL (4.70-6.10); White Blood Cell (WBC) Count 14.6 thou/uL (4.8-10.8)
[2017-08-09] MEDS: Furosemide 100 MG/10 ML VIAL SLOW IVP SCH ×2 (06:00→13:46)
[2017-08-09 06:25] LABS: Potassium 2.9 mmol/L (3.5-5.1)
[2017-08-09 07:06] LABS: CO2 Tension 31.9 mmHg (35.0-45.0); Hematocrit-ABG 25.5 % (42.0-52.0); Hemoglobin (Hb) 7.9 g/dL (14.0-18.0); O2 Tension (PaO2) 71.2 mmHg (80.0-100.0); pH, Arterial 7.51 (7.35-7.45)
[2017-08-09 07:07] LABS: ALV-art Gradient 174.125 (0-20); Calcium, Ionized 1.2 mmol/L (1.12-1.30); Puncture Site RRA
--- NOTE | 2017-08-09 07:40 | RAD ---
AP VIEW CHEST: HISTORY: Ventilator-dependent patient, 66-year-old male. FINDINGS: AP view chest was obtained. EKG leads were seen over the chest. Nasogastric tube is in place. Endo tracheal tube is in good position. Pulmonary vascular congestion is seen. Diffuse airspace opacities seen throughout the entire right l joanna as well as in the left lower lobe. These findings are stable in the lung bases; however, they ap pear to have increased in the right upper lobe. This may represent increasing right upper lobe pneum onia. IMPRESSION: Bilateral airspace opacities with increasing opacity seen in the right upper lobe. POS: [facility]
[2017-08-09] MEDS: Enoxaparin Sodium 80 MG/0.8 ML SYRINGE SC SCH ×2 (08:33→21:34)
[2017-08-09] MEDS ORDERED: Furosemide 40 MG TAB PO SCH (09:00)
[2017-08-09] MEDS: Diltiazem 125 MG in Sodium Chloride 0.9% 100 ML IVPB SCH (10:27)
--- NOTE | 2017-08-09 10:35 | PRG ---
DATE OF SERVICE: 08/09/2017 SUBJECTIVE: Mr. Reddy remains intubated and ventilated. REVIEW OF SYSTEMS: Not obtainable. PHYSICAL EXAMINATION: VITAL SIGNS: Blood pressure 130/70, pulse 150, it is atrial fibrillation with a rapid rate. LUNGS: Rhonchi. CARDIAC: Irregularly irregular. ASSESSMENT: 1. Respiratory failure. 2. Paroxysmal atrial fibrillation, now mostly in atrial fibrillation, rate is difficult to control. PLAN: 1. He is on enoxaparin. 2. He is on intravenous amiodarone. 3. He is on metoprolol. 4. We will add intravenous diltiazem.
--- NOTE | 2017-08-09 12:01 | PDOC.PN ---
- Subjective Encounter Start Date: 08/09/17 Encounter Start Time: 11:00 Subjective: awake on vent -: not in distress - Objective MAR Reviewed: Yes Vital Signs & Weight: Vital Signs (12 hours) Temp Pulse Resp Pulse Ox 08/09/17 10:13 156 H 08/09/17 10:00 30 H 08/09/17 08:00 24 H 08/09/17 07:39 98.8 F 98 24 H 100 08/09/17 06:53 119 H 08/09/17 04:00 99.1 F 29 H 08/09/17 02:52 120 H 08/09/17 02:00 30 H 08/09/17 00:14 120 H 28 H 100 08/09/17 00:00 99.9 F H Weight Admit Weight 163 lb Weight 155 lb 3.287 oz Most Recent Monitor Data Heart Rate from ECG 150 NIBP 97/54 NIBP BP-Mean 67 Respiration from ECG 27 SpO2 97 I&O: 08/08/17 08/09/17 08/10/17 06:59 06:59 06:59 Intake Total 1919.0 2278.6 120 Output Total 5770 2825 1230 Balance -3851.0 -546.4 -1110 Result Diagrams: 08/09/17 04:01 08/09/17 04:01 Phys Exam - Physical Examination HEENT: PERRLA, sclera anicteric Neck: no JVD, supple Respiratory: no wheezing, no rales Cardiovascular: RRR, no significant murmur Gastrointestinal: soft, non-tender, positive bowel sounds Musculoskeletal: no edema, pulses present Neurological: non-focal, moves all 4 limbs Dx/Plan (1) Acute respiratory failure with hypoxia Code(s): J96.01 - ACUTE RESPIRATORY FAILURE WITH HYPOXIA Status: Acute Comment: on ventilator (2) Community acquired bacterial pneumonia Code(s): J15.9 - UNSPECIFIED BACTERIAL PNEUMONIA Status: Acute (3) Demand ischemia of myocardium Code(s): I24.8 - OTHER FORMS OF ACUTE ISCHEMIC HEART DISEASE Status: Acute (4) SVT (supraventricular tachycardia) Code(s): I47.1 - SUPRAVENTRICULAR TACHYCARDIA Status: Acute (5) Sepsis with acute organ dysfunction Code(s): A41.9 - SEPSIS, UNSPECIFIED ORGANISM; R65.20 - SEVERE SEPSIS WITHOUT SEPTIC SHOCK Status: Acute (6) UTI (urinary tract infection) Status: Acute Qualifiers: Urinary tract infection type: acute cystitis Hematuria presence: without hematuria Qualified Code(s): N30.00 - Acute cystitis without hematuria (7) Alcohol abuse Code(s): F10.10 - ALCOHOL ABUSE, UNCOMPLICATED Status: Chronic (8) Protein-calorie malnutrition, moderate Code(s): E44.0 - MODERATE PROTEIN-CALORIE MALNUTRITION Status: Chronic (9) Tobacco abuse Code(s): Z72.0 - TOBACCO USE Status: Chronic - Plan is on nafcillin 2g q6h, amiodarone drip -: weaning per pulm advice -: on robert 70sc q12h, steroids iv -: cxr reviewed, still has large areas on pna in right lung -: suggest hold lasix, watch for sod and renal function * . Review of Systems - Medications/Allergies Allergies/Adverse Reactions: Allergies Allergy/AdvReac Type Severity Reaction Status Date / Time No Known Allergies Allergy Unverified 08/02/17 12:53 Medications: Current Medications Acetaminophen (Tylenol Elixir) 650 mg PER TUBE Q4H PRN PRN Reason: Headache/Fever or MILD Pain Last Admin: 08/08/17 20:24 Dose: 650 mg Al Hydroxide/Mg Hydroxide (Maalox) 30 ml PER TUBE Q6H PRN PRN Reason: Heartburn or Indigestion Albuterol/Ipratropium (Duoneb) 3 ml NEB [id number] [facility] Last Admin: 08/09/17 06:51 Dose: 3 ml Bisacodyl (Dulcolax) 10 mg MA Q24H PRN PRN Reason: Constipation Enoxaparin Sodium (Lovenox) 70 mg SC 0900,2100 [facility] Last Admin: 08/09/17 08:33 Dose: 70 mg Furosemide (Lasix) 60 mg SLOW IVP 0600,1400 [facility] Last Admin: 08/09/17 06:00 Dose: 60 mg Midazolam HCl (Versed) 100 mls @ 0 mls/hr IVPB INF [facility]; Titrate PRN Reason: Protocol Last Admin: 08/08/17 17:13 Dose: 100 mls Nafcillin Sodium 2 gm/ Sodium (Chloride) 100 mls @ 100 mls/hr IVPB Q6HR [facility] Last Admin: 08/09/17 11:45 Dose: 100 mls Sodium Chloride (1/2 Normal Saline) 1,000 mls @ 0 mls/hr IV .Q0M [facility] PRN Reason: KVO Last Admin: 08/09/17 09:51 Dose: 1,000 mls Amiodarone HCl 450 mg/Miscellaneous Medication 1 each/ Dextrose/Water 259 mls @ 0 mls/hr IVPB INF [facility]NE[facility]; As Directed PRN Reason: Protocol Last Admin: 08/09/17 05:25 Dose: 259 mls Diltiazem HCl 125 mg/ Sodium (Chloride) 125 mls @ 5 mls/hr IVPB INF [facility]; 5 MG/ HR PRN Reason: Protocol Last Admin: 08/09/17 10:27 Dose: 125 mls Ketorolac Tromethamine (Toradol) 30 mg IVP 0400,1000,1600,2200 [facility] Stop: 08/13/17 22:01 Last Admin: 08/09/17 09:50 Dose: 30 mg Methylprednisolone Sodium Succinate (Solu-Medrol) 20 mg IVP Q6HR [facility] Last Admin: 08/09/17 11:45 Dose: 20 mg Metoprolol Tartrate (Lopressor) 5 mg IVP Q6HR [facility] Last Admin: 08/09/17 11:45 Dose: 5 mg Ondansetron HCl (Zofran) 4 mg IVP Q6H PRN PRN Reason: Nausea/Vomiting Pantoprazole Sodium (Protonix) 40 mg PER TUBE 2100 [facility] Potassium Chloride (Klor-Con) 40 meq PER TUBE TID [facility] Last Admin: 08/09/17 08:34 Dose: Not Given Sodium Chloride (Flush - Normal Saline) 10 ml IVF Q12HR [facility] Last Admin: 08/09/17 08:35 Dose: 10 ml Sodium Chloride (Flush - Normal Saline) 10 ml IVF PRN PRN PRN Reason: Saline Flush
--- NOTE | 2017-08-09 12:03 | PRG ---
DATE OF SERVICE: 08/09/2017 SUBJECTIVE: Still is having problems with atrial fibrillation (00:00) 150 today. Blood pressur e 115/59. He will awaken. He moves all of his extremities. He follows commands. This is the most alert he has been since he has been here. He does not, however, tolerate atrial fibrillation from a pulmonary edema standpoint. OBJECTIVE: LUNGS: Remarkable for coarse rhonchi diffusely. CARDIOVASCULAR: Regular rhythm. ABDOMEN: Soft. EXTREMITIES: Without asymmetry. LABORATORY DATA: White count 14.6, hemoglobin 9.6, platelets 144,000. He has 27% bands on his perip heral smear today. Sodium 145, potassium 2.9, chloride 111, bicarbonate 25, BUN 34, creatinine 0.8, pH 7.51, CO2 of 31, pO2 71. Currently on mechanical rate of 10. IMPRESSION: 1. Pneumonia with adult respiratory distress syndrome. 2. Staphylococcus aureus bacteremia secondary to large decubitus ulcer, multiple excoriated lesions from falls at home. 3. Very limited prior existing healthcare prior to this admission. 4. Cachexia with history of heavy alcohol and tobacco use prior to this admission, I am told he is m ore or less recluse. 5. Rapid atrial fibrillation with clinical congestive heart failure associated with her atrial fibri llation. 6. Left shift on today's CBC. This will need to be monitored. If this continues, antibiotic change may be indicated. His prognosis for functional recovery is extremely poor, but not hopeless. He is not a candidate for weaning given the instability of his cardiac rhythms and the clinical pulmonary edema that occurs when his rate gets very fast. We will continue with current supportive care measur es. We will continue with ipratropium and albuterol. He is on IV amiodarone. He is also on Cardize m. He is anticoagulated with Lovenox which will need to be monitored very closely. His renal function, however, is improving. He is still on IV steroids and a total of 80 mg a day. He is on nafcillin for his methicillin-sensit boo Staph aureus bacteremia. This will need to be for at least a month, so might be appropriate to g o ahead and place a PICC line this week. Critical care time was 30 minutes.
[2017-08-09 13:25] VITALS: BMI 21.0
[2017-08-09] MEDS: Pantoprazole 40 MG GRANULES PACKET PER TUBE SCH (21:30)
[2017-08-10] MEDS: Nafcillin 2 GM in Sodium Chloride 0.9% 100 ML IVPB SCH ×5 (00:14→23:05)
[2017-08-10] MEDS: Metoprolol Tartrate 5 MG/5 ML VIAL IVP SCH ×5 (00:15→23:05)
[2017-08-10] MEDS: Acetaminophen 650 MG/20.3 ML UDCUP PER TUBE PRN (00:27)
[2017-08-10] MEDS: Ketorolac Tromethamine 30 MG/ML VIAL IVP SCH ×4 (05:00→21:29)
[2017-08-10] MEDS: Furosemide 100 MG/10 ML VIAL SLOW IVP SCH (05:13)
[2017-08-10 06:31] LABS: ALT (SGPT) 22 U/L (8-55); AST (SGOT) 35 U/L (5-34); Albumin 2.8 g/dL (3.4-4.8); Alkaline Phosphatase 50 U/L (40-150); Anion Gap 12 mmol/L (10-20); BUN (Urea Nitrogen) 47 mg/dL (8.4-25.7); Bilirubin, Total 1.6 mg/dL (0.2-1.2); Calc. Creatinine Clearance 65 mL/min (70-130); Calcium 8.3 mg/dL (7.8-10.44); Carbon Dioxide 28 mmol/L (23-31); Chloride 115 mmol/L (98-107); Estimated GFR-MDRD 67; Globulin 3.6 g/dL (2.4-3.5); Glucose 159 mg/dL (80-115); Potassium 4.6 mmol/L (3.5-5.1); Protein, Total 6.4 g/dL (5.8-8.1); Sodium 150 mmol/L (136-145)
[2017-08-10 06:32] LABS: Hemoglobin 10.3 g/dL (14.0-18.0); Mean Corpuscular HGB CONC 33.2 g/dL (32.0-36.0); Mean Corpuscular Hemoglobin 32.2 pg (27.0-31.0); Mean Platelet Volume 8.6 fL (7.4-10.4); Platelet Count 188 thou/uL (130-400); RBC Distribution Width 14.3 % (11.5-14.5); Red Blood Cell (RBC) Count 3.18 mill/uL (4.70-6.10); White Blood Cell (WBC) Count 14.7 thou/uL (4.8-10.8)
[2017-08-10 08:24] LABS: Band 34 % (5-11); Lymphocytes 6 % (21-51); MDiff Complete? YES; Monocytes 1 % (0-10); Myelocyte 1 % (0-0); Neutrophil 57 % (42-75); PLT Morphology Comment Appears Adequate; Polychromasia SLIGHT = 2-3 cells (100X) (0-2/hpf); Reactive Lymphocytes 1 % (0-10); Vacuoles SLIGHT
[2017-08-10] MEDS ORDERED: Fluconazole In NaCl,Iso-Osm 400 MG in Premix Bag 1 BAG IVPB SCH (09:00)
--- NOTE | 2017-08-10 09:07 | PRG ---
DATE OF SERVICE: Khoa Reddy was made a DNR yesterday. He remains on the vent on a Versed drip. PHYSICAL EXAMINATION: VITAL SIGNS: Blood pressure 117/60, pulse 109, sats are 90, respirations 30. Temperature 97, yester day it was 99.8. GENERAL: A cachectic gentleman with multiple decubitus as outlined. He has got yeast growing from his blood culture. CHEST: Chest reveals rhonchi extensive bilateral. CARDIAC: Atrial fibrillation. ABDOMEN: Soft. LABORATORY DATA: Sodium was 150. Creatinine is normal. Albumin is low. White count 14,000, H&H 10 and 30. X-ray shows extensive bilateral infiltrates, right greater than left. IMPRESSION: 1. Multiorgan failure. 2. Supraventricular tachycardia. 3. Bilateral pneumonia. 4. Staph sepsis, yeast to sepsis. 5. Severe deconditioning. PLAN: At this stage, he is not weanable. Continue steroids. Neb treatment and broad-spectrum antib iotics, nafcillin. He has got 34 bandemia. He may need a gram negative in addition to his gram posi tive coverage since he has been in the hospital over a week. I will follow. One-half hour critical care time.
--- NOTE | 2017-08-10 09:45 | PRG ---
DATE OF SERVICE: 08/10/2017 CARDIOLOGY FOLLOWUP SUBJECTIVE: Mr. Reddy remains on the ventilator, looks worse today. PHYSICAL EXAMINATION: VITAL SIGNS: His respiratory rate was in the 30s, but before sedation it was even higher. Blood pre ssure is 85/67, pulse is sinus tachycardia, SVT, some brief AFIB, atrial tachycardia, but there is in termittent sinus rhythm. LUNGS: Very rapid breath sounds with some rhonchi. CARDIAC: Tachycardic. ABDOMEN: Soft and nontender. EXTREMITIES: Cool. PERTINENT LABORATORY DATA: WBC is 14.7, but there is 34 bands. IMAGING DATA: Chest x-ray shows diffuse infiltrates, right worse than left. ASSESSMENT: 1. Pneumonia. 2. Chronic obstructive pulmonary disease. 3. Tachycardia. 4. Hypotension. PLAN: 1. We will reduce diltiazem dose. 2. Continue antibiotics. 3. Potassium has been repleted. 4. Check magnesium level tomorrow. Prognosis appears poor. Patient's current code status is DO NOT RESUSCITATE.
[2017-08-10] MEDS: Amiodarone HCl 450 MG, Admixture Fee 1 EACH in Dextrose 5% in Water 250 ML IVPB SCH (13:39)
--- NOTE | 2017-08-10 13:59 | PDOC.PN ---
- Subjective Encounter Start Date: 08/10/17 Encounter Start Time: 11:30 Subjective: is tachypneic, not oriented, on vent and sedated - Objective Resuscitation Status: Resuscitation Status DNR:Do Not Resuscitate MAR Reviewed: Yes Vital Signs & Weight: Vital Signs (12 hours) Temp Pulse Resp BP Pulse Ox 08/10/17 13:44 101 H 104/56 L 08/10/17 13:39 111 H 35 H 92 L 08/10/17 12:00 98.9 F 35 H 08/10/17 10:46 109 H 115/76 08/10/17 10:00 39 H 08/10/17 08:29 109 H 117/60 08/10/17 08:26 113 H 38 H 08/10/17 08:00 36 H 08/10/17 07:16 97.7 F 136 H 36 H 94 L 08/10/17 07:00 97.7 F 08/10/17 06:00 30 H 08/10/17 04:00 99.8 F H 26 H 08/10/17 03:45 119 H 124/73 08/10/17 02:00 26 H Weight Admit Weight 163 lb Weight 144 lb 6.444 oz Most Recent Monitor Data Heart Rate from ECG 105 NIBP 104/56 NIBP BP-Mean 58 Respiration from ECG 35 SpO2 92 I&O: 08/09/17 08/10/17 08/11/17 06:59 06:59 06:59 Intake Total 2278.6 2727.8 60 Output Total 2825 4562 615 Balance -546.4 -1834.2 -555 Result Diagrams: 08/10/17 06:00 08/10/17 06:00 Phys Exam - Physical Examination HEENT: PERRLA, sclera anicteric Neck: no JVD, supple Respiratory: no wheezing, no rales rhonchi++ Cardiovascular: no significant murmur, irregular Gastrointestinal: soft, non-tender, no distention, positive bowel sounds Musculoskeletal: no edema, pulses present Neurological: non-focal, moves all 4 limbs Dx/Plan (1) Acute respiratory failure with hypoxia Code(s): J96.01 - ACUTE RESPIRATORY FAILURE WITH HYPOXIA Status: Acute Comment: on ventilator (2) Community acquired bacterial pneumonia Code(s): J15.9 - UNSPECIFIED BACTERIAL PNEUMONIA Status: Acute (3) Demand ischemia of myocardium Code(s): I24.8 - OTHER FORMS OF ACUTE ISCHEMIC HEART DISEASE Status: Acute (4) SVT (supraventricular tachycardia) Code(s): I47.1 - SUPRAVENTRICULAR TACHYCARDIA Status: Acute (5) Sepsis with acute organ dysfunction Code(s): A41.9 - SEPSIS, UNSPECIFIED ORGANISM; R65.20 - SEVERE SEPSIS WITHOUT SEPTIC SHOCK Status: Acute (6) UTI (urinary tract infection) Status: Acute Qualifiers: Urinary tract infection type: acute cystitis Hematuria presence: without hematuria Qualified Code(s): N30.00 - Acute cystitis without hematuria (7) Alcohol abuse Code(s): F10.10 - ALCOHOL ABUSE, UNCOMPLICATED Status: Chronic (8) Protein-calorie malnutrition, moderate Code(s): E44.0 - MODERATE PROTEIN-CALORIE MALNUTRITION Status: Chronic (9) Tobacco abuse Code(s): Z72.0 - TOBACCO USE Status: Chronic - Plan is on nafcillin, cardizem drip -: dc lasix, has increasing bun/cr and sod levels -: dc lovenox, poor prognosis with high risk of bleeding/bad pna -: steroids, nebs -: prognosis guarded, enteral feeding via ng * . Review of Systems - Medications/Allergies Allergies/Adverse Reactions: Allergies Allergy/AdvReac Type Severity Reaction Status Date / Time No Known Allergies Allergy Unverified 08/02/17 12:53 Medications: Current Medications Acetaminophen (Tylenol Elixir) 650 mg PER TUBE Q4H PRN PRN Reason: Headache/Fever or MILD Pain Last Admin: 08/10/17 00:27 Dose: 650 mg Al Hydroxide/Mg Hydroxide (Maalox) 30 ml PER TUBE Q6H PRN PRN Reason: Heartburn or Indigestion Albuterol/Ipratropium (Duoneb) 3 ml NEB [id number] [facility] Last Admin: 08/10/17 13:39 Dose: 3 ml Bisacodyl (Dulcolax) 10 mg WI Q24H PRN PRN Reason: Constipation Midazolam HCl (Versed) 100 mls @ 0 mls/hr IVPB INF [facility]; Titrate PRN Reason: Protocol Last Admin: 08/08/17 17:13 Dose: 100 mls Nafcillin Sodium 2 gm/ Sodium (Chloride) 100 mls @ 100 mls/hr IVPB Q6HR [facility] Last Admin: 08/10/17 11:34 Dose: 100 mls Sodium Chloride (1/2 Normal Saline) 1,000 mls @ 0 mls/hr IV .Q0M [facility] PRN Reason: KVO Last Admin: 08/09/17 09:51 Dose: 1,000 mls Amiodarone HCl 450 mg/Miscellaneous Medication 1 each/ Dextrose/Water 259 mls @ 0 mls/hr IVPB INF [facility]; As Directed PRN Reason: Protocol Last Admin: 08/10/17 13:39 Dose: 259 mls Diltiazem HCl 125 mg/ Sodium (Chloride) 125 mls @ 5 mls/hr IVPB INF [facility]; 5 MG/ HR PRN Reason: Protocol Last Admin: 08/09/17 10:27 Dose: 125 mls Fluconazole/Sodium Chloride (400 mg/ Device) 200 mls @ 100 mls/hr IVPB DAILY [facility] Last Admin: 08/10/17 09:53 Dose: 200 mls Ketorolac Tromethamine (Toradol) 30 mg IVP 0400,1000,1600,2200 [facility] Stop: 08/13/17 22:01 Last Admin: 08/10/17 09:53 Dose: 30 mg Methylprednisolone Sodium Succinate (Solu-Medrol) 20 mg IVP Q6HR [facility] Last Admin: 08/10/17 11:34 Dose: 20 mg Metoprolol Tartrate (Lopressor) 5 mg IVP Q6HR [facility] Last Admin: 08/10/17 11:34 Dose: 5 mg Ondansetron HCl (Zofran) 4 mg IVP Q6H PRN PRN Reason: Nausea/Vomiting Pantoprazole Sodium (Protonix) 40 mg PER TUBE 2100 [facility] Last Admin: 08/09/17 21:30 Dose: 40 mg Sodium Chloride (Flush - Normal Saline) 10 ml IVF Q12HR [facility] Last Admin: 08/10/17 08:54 Dose: 10 ml Sodium Chloride (Flush - Normal Saline) 10 ml IVF PRN PRN PRN Reason: Saline Flush
[2017-08-10] MEDS: Diltiazem 125 MG in Sodium Chloride 0.9% 100 ML IVPB SCH (14:58)
[2017-08-10] MEDS: Pantoprazole 40 MG GRANULES PACKET PER TUBE SCH (19:47)
[2017-08-10] MEDS ORDERED: Digoxin 0.5 MG/2 ML AMP SLOW IVP SCH (20:30)
[2017-08-10] MEDS ORDERED: Sodium Chloride 0.9% 500 ML IV SCH (20:30)
[2017-08-10] MEDS ORDERED: Sodium Chloride 0.9% 1,000 ML IV SCH (21:45)
[2017-08-10] MEDS ORDERED: Norepinephrine 16 MG in Dextrose 5% in Water 234 ML IVPB SCH ×2 (23:30→23:45)
[2017-08-11] MEDS: Amiodarone HCl 450 MG, Admixture Fee 1 EACH in Dextrose 5% in Water 250 ML IVPB SCH (01:14)
[2017-08-11] MEDS ORDERED: Sodium Chloride 0.9% 1,000 ML IV SCH (02:45)
[2017-08-11] MEDS: Ketorolac Tromethamine 30 MG/ML VIAL IVP SCH (03:18)
[2017-08-11] MEDS: Nafcillin 2 GM in Sodium Chloride 0.9% 100 ML IVPB SCH (05:05)
[2017-08-11] MEDS: Metoprolol Tartrate 5 MG/5 ML VIAL IVP SCH (05:05)
[2017-08-11] MEDS ORDERED: Vasopressin 40 UNIT, Admixture Fee 1 EACH in Sodium Chloride 0.9% 100 ML IV PRN (06:01)
[2017-08-11 06:46] LABS: Band 42 % (5-11); Hemoglobin 8.9 g/dL (14.0-18.0); Lymphocytes 16 % (21-51); MDiff Complete? YES; Mean Corpuscular HGB CONC 32.1 g/dL (32.0-36.0); Mean Corpuscular Volume 99.8 fl (80.0-94.0); Mean Platelet Volume 8.6 fL (7.4-10.4); Metamyelocyte 11 % (0-0); Monocytes 6 % (0-10); Myelocyte 3 % (0-0); Neutrophil 22 % (42-75); PLT Morphology Comment Appears Adequate; Platelet Count 258 thou/uL (130-400); RBC Distribution Width 14.4 % (11.5-14.5); Red Blood Cell (RBC) Count 2.77 mill/uL (4.70-6.10); White Blood Cell (WBC) Count 5.7 thou/uL (4.8-10.8)
[2017-08-11 06:51] LABS: ALT (SGPT) 12 U/L (8-55); AST (SGOT) 18 U/L (5-34); Albumin 2.3 g/dL (3.4-4.8); Alkaline Phosphatase 36 U/L (40-150); Anion Gap 14 mmol/L (10-20); BUN (Urea Nitrogen) 83 mg/dL (8.4-25.7); Bilirubin, Total 1.9 mg/dL (0.2-1.2); Calc. Creatinine Clearance 25 mL/min (70-130); Calcium 7.5 mg/dL (7.8-10.44); Carbon Dioxide 24 mmol/L (23-31); Chloride 117 mmol/L (98-107); Estimated GFR-MDRD 23; Globulin 2.7 g/dL (2.4-3.5); Glucose 116 mg/dL (80-115); Magnesium 2.4 mg/dL (1.6-2.6); Potassium 4.1 mmol/L (3.5-5.1); Sodium 151 mmol/L (136-145)
--- NOTE | 2017-08-11 07:16 | PRG ---
DATE OF SERVICE: 08/11/2017 SUBJECTIVE: Mr. Reddy is doing very poorly. The patient is on high dose Levophed. There are attempts of cardioversion last night, but he went ba ck into atrial fibrillation with a rapid rate. Patient is also hypotensive. In general, the blood p ressure is better now and he is on high dose Levophed. OBJECTIVE: VITAL SIGNS: His blood pressure is now 150 systolic with pulse of 120. NECK: Neck veins are normal. LUNGS: I do not hear any wheezing. There are some rhonchi. CARDIAC: Tachycardic. ABDOMEN: Soft, nontender. EXTREMITIES: Cool. LABORATORY DATA: Blood testing, his hemoglobin is 8.9, white count is 5.7. Microbiology revealed gr owing yeast of his blood as well as staph. ASSESSMENT: 1. Staph sepsis. 2. Yeast sepsis. 3. Respiratory failure. 4. Atrial fibrillation with a rapid rate. PLAN: 1. He is on intravenous amiodarone at mg per minute. 2. Cardizem. 3. He has previously received digoxin. 4. Urine output is decreased. Prognosis is very poor, do not resuscitate status. Creatinine has go ne up to 2.8. Very poor prognosis.
[2017-08-11 07:57] LABS: Actual Bicarbonate (HCO3a) 20.4 mEq/L (22-28); Base Excess (BEa) -7.4 mEq/L (-2.0 to +3.0); CO2 Tension 52.8 mmHg (35.0-45.0); O2 Tension (PaO2) 47.6 mmHg (> 80.0); pH, Arterial 7.21 (7.35-7.45)
[2017-08-11 07:58] LABS: Calcium, Ionized 1.1 mmol/L (1.12-1.30); Hemoglobin (Hb) 9.9 g/dL (14.0-18.0); Puncture Site LFA
[2017-08-11] MEDS ORDERED: Dextrose 5% in Water 1,000 ML IV SCH (08:00)
[2017-08-11] MEDS ORDERED: Nafcillin 2 GM in Sodium Chloride 0.9% 100 ML IVPB SCH (08:01)
--- NOTE | 2017-08-11 08:14 | RAD ---
PORTABLE CHEST ONE VIEW: 08/11/2017 12:00 a.m. HISTORY: Central line placement. COMPARISON: 08/09/2017 FINDINGS: There has been interval placement of a left internal jugular central line, with the tip in the projec tion of the SVC. No pneumothorax is seen. The remainder of the exam is stable. POS: [facility]
--- NOTE | 2017-08-11 08:34 | PRG ---
DATE OF SERVICE: 08/11/2017 He is unresponsive. He became hypotensive last night shortly after shift change. He was on amiodaro ne and Cardizem. This morning he is on 3 vasopressors including Levophed, vasopressin and dopamine. His pulse is 128, sats 85, respirations 35. He has agonal respirations. Pupils are somewhat dilate d midpoint. He was cardioverted last night again for recurrent SVT. Family has made him a DNR earlier. PHYSICAL EXAMINATION: CHEST: Reveals decreased breath sounds without any wheezing. CARDIAC: Sinus tachycardia. ABDOMEN: Soft. LABORATORY DATA: White count is 5000, H&H 8 and 27, platelet count 258. PO2 is 47, pCO2 50%, 21 on 60%, rate of 17. Creatinine is 2.78. BUN is 83. Sodium 151. His chest x-ray taken at midnight last night shows extensive right-sided opacification and a left low er lobe infiltrate. IMPRESSION: 1. Respiratory failure. 2. Staph sepsis. 3. Renal failure. 4. Encephalopathy. 5. Severe cachexia. 6. Supraventricular tachycardia. 7. V-tach. PLAN: The patient is a DNR, he is on 3 pressors. Vent was adjusted. Discussed with family, comfort care. His Cardizem was discontinued to see whether it will improve his blood pressure. One-half hour critical care time.
[2017-08-11 08:46] VITALS: BP 67/43
--- NOTE | 2017-08-11 09:36 | DS ---
BRIEF SUMMARY Mr. Reddy before we could extubate him, we turned his pressors down, he became asystolic and unresp onsive. He was extubated, pronounced at 9:20 a.m. on 08/11/2017. The patient's closest relativ e is here at the bedside, a niece who admitted him yesterday, a DNR. She is power of insurance defense attorney. No autopsy is going to be performed. Mr. Reddy has multiple medical problems, predominantly Staphylococcus bacteremia, respiratory failu re and pneumonia, cachexia, supraventricular tachyarrhythmia's, septic shock. The body has been released to the home.
[2017-08-11 11:29] VITALS: TEMP 100.9
--- NOTE | 2017-08-11 13:28 | PDOC.PN ---
- Subjective Encounter Start Date: 08/11/17 Encounter Start Time: 08:50 Subjective: on vent, in resp distress, obtunded - Objective Resuscitation Status: Resuscitation Status DNR:Do Not Resuscitate MAR Reviewed: Yes Vital Signs & Weight: Vital Signs (12 hours) Temp Pulse Resp BP Pulse Ox 08/11/17 08:46 100 28 H 84 L 08/11/17 08:33 118 H 67/43 L 08/11/17 08:00 100.9 F H 100 28 H 84 L 08/11/17 07:00 100.9 F H 08/11/17 06:00 31 H 08/11/17 04:00 32 H 08/11/17 03:38 141 H 93/63 08/11/17 03:00 98.2 F 08/11/17 02:00 34 H Weight Admit Weight 163 lb Weight 151 lb 14.376 oz Most Recent Monitor Data Heart Rate from ECG 110 NIBP 70/39 NIBP BP-Mean 24 Respiration from ECG 28 SpO2 70 I&O: 08/10/17 08/11/17 08/12/17 06:59 06:59 06:59 Intake Total 2727.8 4014.7 618.9 Output Total 4562 1230 35 Balance -1834.2 2784.7 583.9 Result Diagrams: 08/11/17 05:45 08/11/17 05:45 Phys Exam - Physical Examination HEENT: PERRLA, sclera anicteric Neck: no JVD, supple rhonchi++ Cardiovascular: RRR tachycardic Gastrointestinal: soft, no distention, positive bowel sounds Musculoskeletal: no edema, pulses present Neurological: non-focal Dx/Plan (1) Acute respiratory failure with hypoxia Code(s): J96.01 - ACUTE RESPIRATORY FAILURE WITH HYPOXIA Status: Acute Comment: on ventilator (2) Community acquired bacterial pneumonia Code(s): J15.9 - UNSPECIFIED BACTERIAL PNEUMONIA Status: Acute (3) Demand ischemia of myocardium Code(s): I24.8 - OTHER FORMS OF ACUTE ISCHEMIC HEART DISEASE Status: Acute (4) SVT (supraventricular tachycardia) Code(s): I47.1 - SUPRAVENTRICULAR TACHYCARDIA Status: Acute (5) Sepsis with acute organ dysfunction Code(s): A41.9 - SEPSIS, UNSPECIFIED ORGANISM; R65.20 - SEVERE SEPSIS WITHOUT SEPTIC SHOCK Status: Acute (6) UTI (urinary tract infection) Status: Acute Qualifiers: Urinary tract infection type: acute cystitis Hematuria presence: without hematuria Qualified Code(s): N30.00 - Acute cystitis without hematuria (7) Alcohol abuse Code(s): F10.10 - ALCOHOL ABUSE, UNCOMPLICATED Status: Chronic (8) Protein-calorie malnutrition, moderate Code(s): E44.0 - MODERATE PROTEIN-CALORIE MALNUTRITION Status: Chronic (9) Tobacco abuse Code(s): Z72.0 - TOBACCO USE Status: Chronic - Plan pt was declared at 9.20 am -: was on 2 pressors plus had recieved bolus fluids -: had been declining from last 36hrs * .
--- NOTE | 2017-08-12 01:05 | DIS ---
SUMMARY DATE OF ADMISSION: 08/02/2017 DATE OF : 08/11/2017 at 9:20 a.m. PRIMARY CAUSE OF : Acute respiratory failure with hypoxia secondary to pneumonia 9 days, supraventricular tachycardia, demand ischemia, sepsis due to pneumonia. SECONDARY CAUSE OF : Alcohol abuse, moderate protein malnutrition, tobacco abuse. BRIEF COURSE DURING HOSPITALIZATION: Patient initially got admitted on the after he was brought by family members after he had a fall in his house. On arrival in ER, patient was short of breath and also EMS noticed that he was in SVT. Paramedics converted his SVT to sinus rhythm with 200 joules shock as he was unstable in the field. After arriving in the emergency room, he rapidly decompensated and required intubation. Patient's initial temperature was 104, had hyponatremia, leukocytosis with bandemia, lactic acidosis, and pneumonia. He was also found to have had urinary tract infection. He was placed on broad spectrum antibiotics and admitted to ICU. He has had consultation with Dr. May for critical care, Dr. Acosta for cardiology. Patient was progressively declining. Palliative care consultation was requested. As patient did not have children, per hospital policy [id number] was used for POA and decision making. Per palliative care, Ms. Elo Scott was made the power of energy attorney. As patient 's prognosis was poor, the POA, Ms. Elo Scott made him a DNR. Overnight, patient progressively declined and went into hypotensive shock and had to be placed on 2 pressors. All through his stay, he was on the ventilator and could not be weaned. He was finally declared at 9:20 a.m. this morning. The body will be released to home per hospital protocol. Dr. Ocampo, pipe foreman, who was covering for Dr. May was present at the time of in the patient's room. OPAL
--- NOTE | 2017-08-12 15:40 | OP ---
DATE OF SERVICE: 08/10/2017 SERVICE: Pulmonary Medicine PROCEDURE: Left-sided triple-lumen IJ central venous catheter placement under ultrasound guidance. CONSENT: The risks and benefits of this procedure were explained to the medical decision maker. All questions were answered and alternative options discussed. STAFF PHYSICIAN: Danny Blair M.D. MEDICATIONS USED: None. PREOPERATIVE DIAGNOSES: Septic shock. POSTPROCEDURE DIAGNOSES: Septic shock. DESCRIPTION OF PROCEDURE: Vital sign monitoring was accomplished by noninvasive hemodynamic monitori ng, pulse oximetry and telemetry. DESCRIPTION OF PROCEDURE: A timeout was performed. The patient was positively identified by name an d date of . The procedure site was marked. The patient was placed in supine position, the left neck was prepped and draped in sterile fashion. The course of the internal jugular vein was mapped with ultrasound. The cannulation needle was placed in the internal jugular vein under direct ultraso und guidance with return of dark red, nonpulsatile blood on the first attempt. A J-shaped guidewire was threaded through the cannulation needle without difficulty. A small incision was made. A dilato r and a triple lumen catheter were serially threaded over the guidewire. The catheter was sutured to the skin at 18 cm with 3-0 silk sutures x4. All ports withdrew and flushed without difficulty. A s terile dressing was applied. The procedure was terminated. Post-procedure x-ray demonstrated good l ocation for the tip of the catheter. ESTIMATED BLOOD LOSS: 4 mL. COMPLICATIONS: None.
== END 2017-08-11 10:50 | disposition expired | DRG 870 ==
LOC: ERS 10:57 → CCU 12:27 → EDBD 12:45 → CCU 12:45
PROVIDERS: ADMIT Internal Medicine; ATTEND Internal Medicine
PROC: 0BH17EZ Insertion of Endotracheal Airway into Trachea, Via Natural or Artificial Opening (ICD-10-PCS; principal; 2017-08-02)
PROC: 5A1955Z Respiratory Ventilation, Greater than 96 Consecutive Hours (ICD-10-PCS; 2017-08-02)
PROC: 02HV33Z Insertion of Infusion Device into Superior Vena Cava, Percutaneous Approach (ICD-10-PCS; 2017-08-02)
PROC: 0XH933Z Insertion of Infusion Device into Left Upper Arm, Percutaneous Approach (ICD-10-PCS; 2017-08-02)
PROC: 5A2204Z Restoration of Cardiac Rhythm, Single (ICD-10-PCS; 2017-08-10)
PROC: 3E033XZ Introduction of Vasopressor into Peripheral Vein, Percutaneous Approach (ICD-10-PCS; 2017-08-10)
DX: A41.01 Sepsis due to Methicillin susceptible Staphylococcus aureus (principal); J96.01 Acute respiratory failure with hypoxia; J15.9 Unspecified bacterial pneumonia; R65.21 Severe sepsis with septic shock; I47.1 Supraventricular tachycardia; E87.1 Hypo-osmolality and hyponatremia; N17.9 Acute kidney failure, unspecified; E87.2 Acidosis; I24.8 Other forms of acute ischemic heart disease; D61.818 Other pancytopenia; E44.0 Moderate protein-calorie malnutrition; R64 Cachexia; N30.00 Acute cystitis without hematuria; Z51.5 Encounter for palliative care; Z66 Do not resuscitate; B37.7 Candidal sepsis; J44.9 Chronic obstructive pulmonary disease, unspecified; I48.0 Paroxysmal atrial fibrillation; E86.0 Dehydration; R79.89 Other specified abnormal findings of blood chemistry; F17.210 Nicotine dependence, cigarettes, uncomplicated; E87.6 Hypokalemia; E87.8 Other disorders of electrolyte and fluid balance, not elsewhere classified; D63.8 Anemia in other chronic diseases classified elsewhere; D69.59 Other secondary thrombocytopenia; E88.09 Other disorders of plasma-protein metabolism, not elsewhere classified; E83.39 Other disorders of phosphorus metabolism; F10.10 Alcohol abuse, uncomplicated; I49.1 Atrial premature depolarization; I10 Essential (primary) hypertension; L89.159 Pressure ulcer of sacral region, unspecified stage; Z78.1 Physical restraint status; Z91.81 History of falling; Z79.82 Long term (current) use of aspirin; Z79.899 Other long term (current) drug therapy; Z86.69 Personal history of other diseases of the nervous system and sense organs; Z91.19 Patient's noncompliance with other medical treatment and regimen; Z68.20 Body mass index [BMI] 20.0-20.9, adult
CPT/HCPCS: 31500; 36415; 51702; 71045; 80053; 80202; 81003; 81015; 82330; 82553; 82803; 82805; 83605; 83690; 83735; 83880; 84100; 84443; 84484; 85007; 85025; 85027; 87040; 87077; 87086; 87149; 87186; 87324; 87449; 93005; 93010; 93306; 94002; 94003; 94640; 94760; 96361; 96365; 96374; 96375; 99292; A4216; C9113; J0282; J0456; J0696; J1160; J1450; J1650; J1885; J1940; J2060; J2250; J2543; J2920; J3370; J3411; J3475; J3480; J7042; J7050; J7070; J7620; P9047; S0032